=== PATIENT | female | born 1995 | race Caucasian/White ===

== ENCOUNTER 2025-01-28 09:04 | Inpatient (IN) | payer OTHER, SELFPAY ==
--- NOTE | ~2025-01-28 | CT_ITS ---
CLINICAL HISTORY: travel, chest pain tachycardia CTA angiography chest using bolus contrast injection. 3-D postprocessing Comparison: None Findings: Normal thoracic aorta and branch vessels Heart size is normal . RV/LV ratio normal Trachea and esophagus are normal. No signs of large airway obstruction Normal lungs Below the diaphragm , visualized portions of liver and spleen are unremarkable. No acute fractures Impression: Normal CTA angiography of the aorta. Negative for pulmonary embolus This document has been electronically signed by: David Estrada MD on 01/28/2025 13:29:03
--- NOTE | ~2025-01-28 | XR_ITS ---
CLINICAL HISTORY: pain Chest radiograph, 1 view Comparison: None Findings: The cardiomediastinal silhouette is not enlarged. Pulmonary vascularity is unremarkable. No focal consolidation or effusion. No pneumothorax. IMPRESSION: No acute cardiopulmonary findings. This document has been electronically signed by: Noam Fried DO on 01/28/2025 11:18:39
--- NOTE | 2025-01-28 09:05 | ECG_ITS ---
Test Reason : chest pain Blood Pressure : */* mmHG Vent. Rate : 109 BPM Atrial Rate : 109 BPM P-R Int : 116 ms QRS Dur : 94 ms QT Int : 310 ms P-R-T Axes : 70 89 59 degrees QTcB Int : 417 ms Sinus tachycardia Incomplete right bundle branch block Nonspecific ST abnormality Abnormal ECG No previous ECGs available Referred By: Generic ED Physician Electronically Signed By: HONORIO ZARAGOZA MD
[2025-01-28 09:10] VITALS: BP 122/69; PULSE 118; RESP 20; TEMP 36.6; O2SAT 100; BMI 24.4
--- NOTE | 2025-01-28 09:22 | ED.CHESTPAIN ---
HPI - Chest Pain General Chief Complaint: Chest Pain Stated Complaint: chest pain Time Seen by Provider: 01/28/25 09:18 Source: patient Mode of arrival: ambulatory Limitations: no limitations History of Present Illness ED Provider: JOAQUIN HPI narrative: 29 yo female with no PMH not on OCPs notes she has had runny nose and cough since last Wednesday while in [place]. She came home on . Last night around midnight she developed L sided chest burning and hurts to take a deep breath. She has not had a fever since last weekend. She notes no prior hx of blood clots, no rash. She has felt tired and weak. She checked her BP in the middle of the night it was 90s/50s. No recent calf pain. She could feel her heart racing overnight as well. No medications taken at home. MD complaint: chest pain Onset (ago): hour(s) (12) Timing of current episode: constant Prior episodes: Yes Onset: during rest Pain location: left chest Pain radiation: none Severity: moderate Quality: burning Relieving factors: nothing Exacerbating factors: inspiration Context: recent illness and recent travel Associated symptoms: palpitations Treatment prior to arrival: none Related Data Allergies Allergy/AdvReac Type Severity Reaction Status Date / Time No Known Allergies Allergy Verified 01/28/25 09:14 Review of Systems Review of Systems: Constitutional : No Weight loss, No Fever, No Chills ENT/Mouth : No sore throat, pos Rhinorrhea Eyes: No Eye Pain, No Swelling Cardiovascular : pos Chest Pain, no SOB, no Dyspnea on Exertion, No Orthopnea, No Edema, pos Palpitations Respiratory : No Cough, No Sputum Gastrointestinal : no Nausea, No Vomiting, No Diarrhea, No abdominal Pain, No Hematochezia, No Melena Genitourinary : No Dysuria, No Urinary Frequency Musculoskeletal : No joint pain, No Myalgias, No Joint Swelling Skin : No Skin Lesions, No rash Neuro : No Weakness, No Numbness, No Dizziness, No Headache All other systems reviewed and are negative [facility] Past Medical History Attestation statement: The following information was validated with the patient. Medical History No pertinent past medical history Social History Social History (Updated 01/28/25 @ 09:49 by Nhung Pennington DO) Patient Tobacco Use Status: Never used Tobacco Smoked in Last 30 Days: No Use of substances other than those prescribed or required for medical reasons: No Advance Directives: No Advance Directives Information Provided: No Do you have a plan to hurt others: No Plan Patient : No Physical Exam Vital Signs: Vital Signs: Last Vital Signs Temp 97.9 F 01/28/25 09:10 Pulse 107 H 01/28/25 11:46 Resp 12 01/28/25 11:46 BP 122/69 01/28/25 09:10 Pulse Ox 100 01/28/25 11:46 O2 Del Method Room Air 01/28/25 11:46 BMI result Body Mass Index 24.4 Appearance: Alert. Oriented X3. No acute distress. Eyes: Pupils equal, round and reactive to light. ENT: Pharynx normal. Neck: Normal inspection. Neck supple. CVS: Normal heart rate and rhythm. Pulses normal. Respiratory: No respiratory distress. Breath sounds normal. Abdomen: Soft and nontender. Skin: Skin warm and dry. Normal skin color. Normal skin turgor. Extremities: No lower extremity edema. No calf ttp Neuro: Oriented X 3. No motor deficit. No sensory deficit. CN2-12 intact Course Course Course Narrative: pain 3/10 resting comfortably after IV morphine given her symptoms and persistent tachycardia I am going to obtain CTA of chest Medications Administered Discontinued Medications Generic Name Dose Route Start Last Admin Trade Name Freq PRN Reason Stop Dose Admin Colchicine 0.6 mg 01/28/25 12:35 01/28/25 12:49 Colchicine 0.6 Mg Tablet PO 01/28/25 12:36 0.6 mg ONCE ONE Administration Lactated Ringer's 1,000 mls @ 999 mls/hr 01/28/25 09:36 01/28/25 11:00 Lr IV 01/28/25 10:36 Infused .Q1H1M ONE Infusion Iohexol 100 ml 01/28/25 11:35 01/28/25 11:35 Iohexol 350 Mg/Ml 100 Ml Infus..Btl IV 01/28/25 11:36 65 ml ONCE ONE Administration Ketorolac Tromethamine 15 mg 01/28/25 09:36 01/28/25 09:56 Ketorolac Tromethamine 15 Mg/Ml Vial IVPUSH 01/28/25 09:37 15 mg ONCE ONE Administration Morphine Sulfate 2 mg 01/28/25 10:13 01/28/25 10:22 Morphine Sulfate 2 Mg/Ml Cartridge IVPUSH 01/28/25 10:14 2 mg ONCE ONE Administration Protocol Ondansetron HCl 4 mg 01/28/25 10:13 01/28/25 10:21 Ondansetron Hcl 4 Mg/2 Ml Vial IVPUSH 01/28/25 10:14 4 mg ONCE ONE Administration Procedures Procedure Narrative Procedure Narrative: bedside ECHO apical parasternal subxiphoid no effusion noted no obvious GWMA Medical Decision Making Medical Decision Making MDM Narrative: 29 yo female with no sig PMH here with c/o recent URI x 1 week no recent fevers but then just traveled back from [place]. She is not on OCPs and has no known risk factors for VTE at baseline who developed L sided burning chest pain and pleuritic pain x 12 hours. At this time labs, viral panel, ddimer for low to mod probability, CXR, IVF and toradol for pain. She has no ACS risk factors, given viral illness could also be a myocarditis. Differential Diagnosis Differential Diagnoses: The differential diagnosis associated with the presentation includes URI, lyte abnormality, dehydration, VTE, atypical chest pain, myocarditis/pericarditis, SCAD Admission/Observation Consideration of admission/observation: Escalation of care including admission/observation considered admit for ECHO, trop trend, cardiology consult Consult Healthcare Provider Management of the patient was discussed with: Hospitalist (will admit) and Internet Programmer (cardiology ) Dr. Latif recommends NSAIDs, colchicine, ECHO Lab Data [facility] Lab Attestation statement: I reviewed the patient's lab results. 01/28/25 09:24 01/28/25 09:24 Labs: Lab Results 01/28/25 01/28/25 Range/Units 09:24 11:45 WBC 6.6 (4.8-10.8) X10*3/uL RBC 4.60 (4.20-5.50) X10*6/uL Hgb 13.1 (12.0-16.0) g/dl Hct 39.3 (37.0-47.0) % MCV 85.4 (80.0-98.0) fL MCH 28.5 (27.0-33.0) pg MCHC 33.3 (31.0-35.0) g/dl RDW 12.8 (11.0-16.0) % Plt Count 322 (160-400) X10*3/uL MPV 9.9 (9.4-12.3) fL Immature Gran % (Auto) 0.6 H (0.0-0.4) % Neut % (Auto) 71.3 (45-73) % Lymph % (Auto) 22.9 (20-40) % [place] % (Auto) 4.3 (2-11) % Eos % (Auto) 0.6 (0-4) % Baso % (Auto) 0.3 (0-2) % Lymph # (Auto) 1.5 (1.2-4.9) X10*3/uL [place] # (Auto) 0.3 (0.1-1.2) X10*3/uL Eos # (Auto) 0.0 (0.0-0.4) X10*3/uL Baso # (Auto) 0.0 (0.0-0.2) X10*3/uL Abs Immat Gran (auto) 0.04 H (0.00-0.03) X10*3/uL Absolute Neuts (auto) 4.7 (2.0-8.3) x10*3/uL Absolute Nucleated RBC 0.000 (0.0-0.012) X10*3/uL Nucleated RBC % (auto) 0.0 (0.0-0.2) /100WBC ESR 14 (0-20) MM/HR D-Dimer High Sensitivty 169 NG/ML Sodium 142 (135-145) mmol/L Potassium 3.8 (3.3-5.1) mmol/L Chloride 106 (96-108) mmol/L Carbon Dioxide 24 (22-29) mmol/L Anion Gap 16 (12-20) BUN 11 (9-16) mg/dL Creatinine 0.62 (0.5-1.4) mg/dL Estim Creat Clear Calc 108.0 Estimated GFR > 60 Random Glucose 97 (60-115) mg/dL Calcium 9.2 (8.4-10.2) mg/dL Magnesium 2.3 (1.6-2.6) mg/dL Total Bilirubin 0.5 (0.0-1.0) mg/dL Direct Bilirubin 0.2 (0.0-0.5) mg/dL AST 28 (5-31) U/L ALT 19 (0-31) U/L Alkaline Phosphatase 52 (39-117) U/L Total Creatine Kinase 185 H (26-140) U/L Troponin I High Sens 189.1 H* 190.8 H* (<3.5-17.0) ng/L C-Reactive Protein 0.59 H (< or = 0.50) mg/dL B-Natriuretic Peptide 18 (<100) pg/mL Total Protein 7.8 (6.5-8.0) g/dL Albumin 4.6 (3.5-5.0) g/dL Lipase 13 (8-78) U/L Beta HCG, Quant < 2 mIU/mL Influenza Type A (PCR) NEGATIVE (Negative) Influenza Type B (PCR) NEGATIVE (Negative) RSV RNA Qual (PCR) NEGATIVE (Negative) SARS-CoV-2 RNA (RT-PCR) NEGATIVE (Negative) Independent Interpretation I performed an independent interpretation of an: EKG, Plain X-Ray (no pneumonia) and CT Scan (no VTE, no dissection) Interpretation: Rate: 109 Rhythm: sinus tach [place]: normal Normal P waves. Normal JAHAIRA. incomplete RBBB ST T wave : no LASHAWN, nonspecific ST T wave changes inf lateral leads qTC: 417 prior studies: no prior The study has been interpreted contemporaneously by me. . Radiology Impression Discussion of test interpretation with radiology: I have reviewed the radiologist's reading. Independent Historian Clinical information obtained from an independent historian. History obtained from or confirmed by: Spouse Discharge Plan Discharge Clinical Impression: Chest pain, pleuritic, Elevated troponin, Acute viral syndrome Patient Disposition: Admitted As Inpatient Print Language: Tajik
[2025-01-28 09:33] LABS: MANUAL DIFF FLAG NO
[2025-01-28 09:48] LABS: Alanine Aminotransferase 19 U/L (0-31); Albumin Level 4.6 g/dL (3.5-5.0); Alkaline Phosphatase 52 U/L (39-117); Anion Gap 16 (12-20); Aspartate Amino Transferase 28 U/L (5-31); Bilirubin Direct 0.2 mg/dL (0.0-0.5); Bilirubin Total 0.5 mg/dL (0.0-1.0); Blood Urea Nitrogen 11 mg/dL (9-16); Calcium 9.2 mg/dL (8.4-10.2); Carbon Dioxide 24 mmol/L (22-29); Chloride 106 mmol/L (96-108); Estimated Glomerular Filt Rate > 60; Glucose Random 97 mg/dL (60-115); Lipase 13 U/L (8-78); Magnesium 2.3 mg/dL (1.6-2.6); Potassium 3.8 mmol/L (3.3-5.1); Sodium 142 mmol/L (135-145); Total Protein 7.8 g/dL (6.5-8.0)
[2025-01-28 09:54] LABS: B Type Natriuretic Peptide 18 pg/mL (<100)
[2025-01-28 09:55] LABS: HCG Quantitative < 2 mIU/mL
[2025-01-28] MEDS: Ketorolac Tromethamine 15 MG/ML VIAL IVPUSH (09:56)
[2025-01-28] MEDS: Lactated Ringers 1,000 ML 999 ML IV (09:56)
[2025-01-28 09:58] LABS: Troponin-I High Sensitivity 189.1 ng/L (<3.5-17.0)
--- NOTE | 2025-01-28 10:05 | PC.NURSE ---
patient a&ox3, iv inserted, labs previously drawn, ekg previously drawn, grain and yeast plants supervisor applied, pt medicated per order, provider at bedside, call lay within reach, plan of care ongoing
[2025-01-28 10:10] LABS: Influenza A PCR NEGATIVE (Negative); Influenza B PCR NEGATIVE (Negative); Resp Syncy Virus RNA Qual PCR NEGATIVE (Negative); SARS COV2 PCR INHOUSE NEGATIVE (Negative)
[2025-01-28 10:11] LABS: Basophils Percent Auto 0.3 % (0-2); Eosinophils Percent Auto 0.6 % (0-4); Hematocrit 39.3 % (37.0-47.0); Hemoglobin 13.1 g/dl (12.0-16.0); Imm Gran Abs Auto 0.04 X10*3/uL (0.00-0.03); Imm Gran Pct Auto 0.6 % (0.0-0.4); Lymphocytes Absolute Auto 1.5 X10*3/uL (1.2-4.9); Lymphocytes Percent Auto 22.9 % (20-40); Mean Corpuscular HGB Conc 33.3 g/dl (31.0-35.0); Mean Corpuscular Hemoglobin 28.5 pg (27.0-33.0); Mean Corpuscular Volume 85.4 fL (80.0-98.0); Mean Platelet Volume 9.9 fL (9.4-12.3); Monocytes Absolute Auto 0.3 X10*3/uL (0.1-1.2); Monocytes Percent Auto 4.3 % (2-11); Neutrophils Absolute Auto 4.7 x10*3/uL (2.0-8.3); Neutrophils Percent Auto 71.3 % (45-73); Platelet Count 322 X10*3/uL (160-400); Red Cell Distribution Width 12.8 % (11.0-16.0); White Blood Count 6.6 X10*3/uL (4.8-10.8)
[2025-01-28 10:19] LABS: D Dimer High Sensitivity 169 NG/ML
[2025-01-28] MEDS: ondansetron HCL 4 MG/2 ML VIAL IVPUSH (10:21)
[2025-01-28] MEDS: Morphine Sulfate 2 MG/ML CARTRIDGE IVPUSH (10:22)
[2025-01-28 10:25] LABS: C Reactive Protein 0.59 mg/dL (< or = 0.50)
--- NOTE | 2025-01-28 10:30 | PC.NURSE ---
pt medicated for pain per orders
[2025-01-28 10:55] LABS: Erythrocyte Sedimentation Rate 14 MM/HR (0-20)
[2025-01-28] MEDS: iohexoL 350 MG/ML 100 ML INFUS..BTL IV (11:35)
[2025-01-28 11:46] VITALS: PULSE 107; RESP 12; O2SAT 100
[2025-01-28 12:22] LABS: Troponin-I High Sensitivity 190.8 ng/L (<3.5-17.0)
[2025-01-28] MEDS: Colchicine 0.6 MG TABLET PO ×2 (12:49→21:02)
--- NOTE | 2025-01-28 13:39 | P.HPHOSP_ITS ---
History of Present Illness Date of Service: 01/28/25 Attending physician on admission: Brittany Gatica Chief Complaint: Chest pain Pt is a 29-year-old female with without any known significant PMH not on home prescription medications who presents to the ED with?chest pain since midnight last night. Pt reports she was awoken from sleep with primarily left-sided, non-radiating chest pain she initially thought was heartburn has her chest felt ?on fire?. Pt was able to fall back asleep, but pain persisted in the morning when she awoke. Also experienced some SOB, difficulty breathing, and palpitations. Pt reports last week on Wednesday came down with a ?tough cold? while visiting [place]. Pt experienced fever, chills, rhinorrhea, cough, and laryngitis. Currently no fever or chills, nausea, vomiting, or abdominal pain. In the ED pt was tachycardic up to 118, vitals otherwise stable and WNL. Labs were significant for initial troponin 189.1 with repeat flat at 190.8, CPK 185, CRP mildly elevated at 0.59. No leukocytosis. Stable H&H. ESR WNL at 14. No significant electrolyte abnormalities. Renal function baseline. Hepatic function baseline. BNP WNL. Tested negative for flu, COVID, RSV. CXR showed no acute cardiopulmonary findings. CTA of chest negative for PE. EKG demonstrated sinus tachycardia of [address] abnormality. Pt was treated with IVF, ketorolac, ondansetron, morphine, and colchicine. Pt will be admitted to the hospital for treatment and further evaluation of elevated troponins and chest pain concerning for myocarditis. Review of Systems 2 Review of Systems: Negative except for that which is stated in the HPI. [facility] Medical History No pertinent past medical history Social History Patient Tobacco Use Status: Never used Tobacco Smoked in Last 30 Days: No Use of substances other than those prescribed or required for medical reasons: No Advance Directives: No Advance Directives Information Provided: No Do you have a plan to hurt others: No Plan Patient : No Meds Allergies Allergy/AdvReac Type Severity Reaction Status Date / Time No Known Allergies Allergy Verified 01/28/25 09:14 Home Medications ?Medication ?Instructions ?Recorded ?Confirmed ?Last Taken ?Type magnesium glycinate 100 mg (as 200 mg PO DAILY 01/28/25 01/28/25 01/27/25 History glycinate) tablet omega-3 fatty acids-fish oil 684 1 cap PO DAILY 01/28/25 01/28/25 01/27/25 History mg-1,200 mg capsule,delayed release Physical Exam 2 Vital Signs and Narrative: Vital Signs: Last Vital Signs Temp 97.9 F 01/28/25 09:10 Pulse 107 H 01/28/25 11:46 Resp 12 01/28/25 11:46 BP 122/69 01/28/25 09:10 Pulse Ox 100 01/28/25 11:46 O2 Del Method Room Air 01/28/25 11:46 BMI result Body Mass Index 24.4 General: AOx3, no acute distress Resp: CTA bilaterally CVS: S1, S2, RRR GI: +BS, NT, no distention Skin: Warm, dry Neuro: Cranial nerves II-XII grossly intact bilaterally. Motor grossly intact bilaterally Extremities: No edema Psych: Appropriate affect Results Labs 01/28/25 09:24 01/28/25 09:24 Labs: Laboratory Results - last 24 hr 01/28/25 09:24 MCV 85.4 MCH 28.5 MCHC 33.3 RDW 12.8 Plt Count 322 MPV 9.9 Immature Gran % (Auto) 0.6 H Neut % (Auto) 71.3 Lymph % (Auto) 22.9 [place] % (Auto) 4.3 Eos % (Auto) 0.6 Baso % (Auto) 0.3 Lymph # (Auto) 1.5 [place] # (Auto) 0.3 Eos # (Auto) 0.0 Baso # (Auto) 0.0 Abs Immat Gran (auto) 0.04 H Absolute Neuts (auto) 4.7 Absolute Nucleated RBC 0.000 Nucleated RBC % (auto) 0.0 ESR 14 D-Dimer High Sensitivty 169 Anion Gap 16 Estim Creat Clear Calc 108.0 Estimated GFR > 60 Random Glucose 97 Calcium 9.2 Magnesium 2.3 Total Bilirubin 0.5 Direct Bilirubin 0.2 AST 28 ALT 19 Alkaline Phosphatase 52 Total Creatine Kinase 185 H C-Reactive Protein 0.59 H B-Natriuretic Peptide 18 Total Protein 7.8 Albumin 4.6 Lipase 13 Beta HCG, Quant < 2 Influenza Type A (PCR) NEGATIVE Influenza Type B (PCR) NEGATIVE RSV RNA Qual (PCR) NEGATIVE SARS-CoV-2 RNA (RT-PCR) NEGATIVE Assessment and Plan (1) Elevated troponin: Status: Acute (2) Chest pain: Status: Acute Plan Pt is a 29-year-old female with without any known significant PMH not on home prescription medications who presents to the ED with?chest pain since midnight last night. Pt will be admitted to the hospital for treatment and further evaluation of elevated troponins and chest pain concerning for myocarditis. Elevated troponins Pt with left-sided chest pain since last night Initial troponin 189.1 with repeat 190.8, EKG without significant ST elevations Will treat with indomethacin 50 mg b.i.d., colchicine 0.6 mg b.i.d., and GI prophylaxis with omeprazole 20 mg daily Echocardiogram Trend troponin, CRP, ESR, CPK Cardiology consult Monitor on telemetry Full Code Attending:?Dr. Gatica DVT Prophylaxis: Lovenox Pt will require a hospitalization of at least two nights for treatment of?chest pain and elevated troponins concerning for myocarditis. Pt will require hospital level care for trending of labs including troponins and inflammatory markers, close cardiac monitoring, and additional workup including echocardiogram and cardiology consultation. Quality Stroke Does the patient have a stroke diagnosis?: No VTE Prior VTE?: No VTE Risk Level:: Medical - moderate - high VTE Device Contraindication: Treatment Not Indicated VTE Drug Contraindication: N/A - Med Ordered
[2025-01-28 14:04] VITALS: BP 100/53; PULSE 111; RESP 12; TEMP 36.8; O2SAT 98
--- NOTE | 2025-01-28 14:04 | PC.NURSE ---
patient a&ox3, vss, cardiac moitor intact-sinus tach, pt states she has 3/10 chest discomfort, at bedside, hospitalist speaking with patient and family, call lay within reach, plan of care ongoing
--- NOTE | 2025-01-28 15:18 | PHA.MEDREC ---
Pharmacy Consult ? Medication Reconciliation Pharmacy has completed the medication reconciliation. Spoke to pt to confirm meds. Per pt, cannot tolerate magnesium Oxide as it causes diarrhea.
[2025-01-28] MEDS: Enoxaparin Sodium 40 MG/0.4 ML SYRINGE SUBCUT (15:40)
[2025-01-28] MEDS: 0.9 % Sodium Chloride Flush 3 ML SYRINGE IVFLUSH (15:42)
[2025-01-28 17:49] VITALS: BP 106/54; PULSE 110; RESP 20; O2SAT 98
--- NOTE | 2025-01-28 18:13 | PC.NURSE ---
patient currently sleeping, master lay out specialist intact NSR 80s on monitor, call lay within reach, plan of care ongoing
[2025-01-28 19:52] VITALS: BP 116/60; PULSE 85; RESP 18; O2SAT 99
[2025-01-28] MEDS: Acetaminophen 325 MG TABLET 650 MG PO (21:01)
[2025-01-28] MEDS: Indomethacin 25 MG CAPSULE 50 MG PO (21:02)
[2025-01-29 01:22] VITALS: BP 108/67; PULSE 105; RESP 16; TEMP 36.5; O2SAT 98
[2025-01-29] MEDS: Omeprazole 20 MG CAPSULE.DR PO (06:28)
[2025-01-29 06:31] VITALS: BP 102/67; PULSE 91; RESP 16; TEMP 36.6; O2SAT 98
--- NOTE | 2025-01-29 07:00 | CA_ITS ---
Transthoracic Echocardiogram Patient (Last, First, Middle): Carrol Dunbar, Gender: Female Date of : 1995 Age: 29 Procedure Date: 01/29/2025 Procedure Type: Transthoracic Echocardiogram Location: ER Height: 154.94 cm Weight: 58.06 kg BSA: 1.56 m2 Heart Rate: 83 bpm BP: 102 / 67 mmHg Operating Theatre Technician: SB Referring MD: Anne COLMENARES Symptoms: Elevated trops, ?myocarditis Study Quality: Adequate ECG Rhythm: Sinus Conclusions: - The left ventricular systolic function is normal. The calculated ejection fraction is 59% by biplane method. - Possible basal inferior/ inferolateral wall hypokinesis. - No obvious valvular pathology seen on this study. - There is a trivial pericardial effusion. Findings Left Ventricle Normal left ventricular cavity size. There is normal left ventricular wall thickness. The left ventricular systolic function is normal. The calculated ejection fraction is 59% by biplane method. Diastolic function is normal for age. Possible basal inferior/ inferolateral wall hypokinesis. Right Ventricle Normal right ventricular cavity size and systolic function. Atria Both atria are normal in size. Aortic Valve There is a normal trileaflet aortic valve. There is no aortic valve stenosis. There is no aortic valve regurgitation. Mitral Valve The mitral valve appears normal. There is no mitral valve regurgitation. There is no mitral valve stenosis. Pulmonic Valve The pulmonic valve is likely normal. Tricuspid Valve Normal tricuspid valve structure. There is no tricuspid valve regurgitation. Tricuspid regurgitation envelope is inadequate for calculation of right ventricular systolic pressure. Great Vessels The asc aorta is normal in size. Venous The inferior vena cava is normal in size and collapses greater than 50% with inspiration. Pericardium/Pleural There is a trivial pericardial effusion. Prior Study Comparison No prior study available for comparison. Recommendations, Care & Conclusions No obvious valvular pathology seen on this study. Measurements 2D Linear Measurements IVSd: 0.59 0.6-0.9/0.6-1.0 cm LVIDd: 4.65 3.9-5.3/4.2-5.9 cm LVIDd Index: 2.98 2.4-3.2/2.2-3.1 cm/m2 LVIDs: 2.85 2.0-3.6 cm LVPWd: 0.62 0.7-1.1 cm LA Diam: 2.70 2.7-3.8/3.0-4.0 cm LAIDs Index: 1.73 1.5-2.3 cm/m2 LV Mass: 104.82 67-162/88-224 g LV Mass Index: 67.19 43-95/49-115 g/m2 LVOT Diam: 2.10 3.0+(-)1.3 cm 2D Systolic Function EF 4C: 58.90 >55% EF 2C: 60.60 >55% EF BiP: 59.20 >55% Mitral Valve MV Pk E: 0.83 MV PK A: 0.27 MV Decel Time: 190.00 E/A: 3.00 E'Lateral: 17.60 E'Medial: 13.90 E/E' Med: 6.00 E/E' Lat: 4.70 PHT: 56.00 MVA PHT: 3.93 Decel [place]: 4.39 Aortic Valve AoV Pk Monster: 1.19 AoV Pk Grad: 6.00 [place]: 2.97 LVOT LVOT Pk Monster: 1.04 LVOT Mn Monster: 0.71 LVOT VTI: 0.19 LVOT Pk Grad: 4.00 LVOT Mn Grad: 2.00 LVOT Diam: 2.10 LVOT Area: 3.46 Diastolic Function MV Pk E: 0.83 MV Pk A: 0.27 E/A: 3.00 E'Medial: 13.90 E/E' Med: 6.00 E' Laterial: 17.60 E/E' Lat: 4.70 Right Ventricle TVS' Monster: 12.30 Tricuspid Valve RA Press: 3.00 Great Vessels Aorta Ao Asc: 2.40 2.1-3.4 cm Pulmonary Veins Pulm Vein S/D 1.50 Pulmonary Valve PV Pk Monster: 1.11 Peak PV Grad: 5.00 Updated in Other Vendor System with Status of Final Domenico Josue MD electronically signed on 01/29/2025 11:19:03 AM with status of Final
[2025-01-29 07:52] LABS: Anion Gap 11 (12-20); Blood Urea Nitrogen 10 mg/dL (9-16); C Reactive Protein 0.33 mg/dL (< or = 0.50); Calcium 8.5 mg/dL (8.4-10.2); Carbon Dioxide 23 mmol/L (22-29); Chloride 110 mmol/L (96-108); Creatinine Clr Calc Pharmacy 121.8; Estimated Glomerular Filt Rate > 60; Glucose Random 79 mg/dL (60-115); Potassium 3.7 mmol/L (3.3-5.1); Sodium 140 mmol/L (135-145)
[2025-01-29 07:59] LABS: Troponin-I High Sensitivity 36.5 ng/L (<3.5-17.0)
[2025-01-29 08:31] LABS: Erythrocyte Sedimentation Rate 12 MM/HR (0-20)
--- NOTE | 2025-01-29 09:02 | P.CONCA_ITS ---
History of Present Illness History of Present Illness Date of Service: 01/29/25 Chief complaint: Myocarditis Narrative: This is a cardiology consultation regarding chest pain. Patient herself does not have any major health issues and she is quite healthy. 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 Then she came to her home town, [place] few days back. While in [place], it seems that she was having some upper respiratory symptoms. However, that later developed into left-sided chest pain which felt like heartburn and as it did not go away, she came to the ER. Troponins are elevated and she has been diagnosed as myocarditis. Today, she states she actually feels much better on the chest pain is gone. No previous cardiac issues and no other concerns overall. Review of Systems 2 Review of Systems: Yes all other systems are reviewed and are negative Constitutional: Constitutional: Reports as per HPI and Reports no additional constitutional complaints Eyes: Eyes: Reports as per HPI and Denies no additional eye complaints ENT: Denies system reviewed and no additional complaints, except as documented and Reports as per HPI Cardiovascular: Cardiovascular: Reports as per HPI, Reports no additional cardiovascular complaints, Denies acrocyanosis, Denies cool extremities, Reports chest pain, Denies leg edema, Denies lightheadedness, Denies palpitations and Denies dyspnea Respiratory: Respiratory: Reports as per HPI, Denies no additional respiratory complaints and Denies dyspnea Gastrointestinal: Gastrointestinal: Reports as per HPI and Denies no additional gastrointestinal complaints Genitourinary: Genitourinary: Reports as per HPI Musculoskeletal: Musculoskeletal: Reports no additional musculoskeletal complaints and Reports as per HPI Integumentary/Breasts: Skin/Breast: Reports system reviewed and no additional complaints, except as docu Neurologic: Reports system reviewed and no additional complaints, except as documented and Reports as per HPI Psychiatric: Psychiatric: Reports no additional psychiatric complaints and Reports as per HPI Endocrine: Endocrine: Reports no additional endocrine complaints, Reports as per HPI and Denies palpitations Hematologic/Lymphatic: Hematologic/Lymphatic: Reports no additional hematologic/lymphatic complaints and Reports as per HPI Allergic/Immunologic: Allergic/Immunologic: Reports no additional allergic/immunologic complaints and Reports as per HPI [facility] Past Medical History Medical History No pertinent past medical history Family History Family History Mother No problems noted. Father No problems noted. Social History Social History Patient Tobacco Use Status: Never used Tobacco Smoked in Last 30 Days: No Use of substances other than those prescribed or required for medical reasons: No Advance Directives: No Advance Directives Information Provided: No Do you have a plan to hurt others: No Plan Patient : No Meds Allergies Allergy/AdvReac Type Severity Reaction Status Date / Time No Known Allergies Allergy Verified 01/28/25 09:14 Active Medications: Current Medications Acetaminophen (Acetaminophen 325 Mg Tablet) 650 mg PO Q6H PRN PRN Reason: Pain, Mild 1-3,fever,headache Last Admin: 01/28/25 21:01 Dose: 650 mg Calcium Carbonate (Calcium Carbonate 750 Mg Tab.Chew) 750 mg PO Q4H PRN PRN Reason: Heartburn Colchicine (Colchicine 0.6 Mg Tablet) 0.6 mg PO BID [facility] Last Admin: 01/28/25 21:02 Dose: 0.6 mg Enoxaparin Sodium (Enoxaparin Sodium 40 Mg/0.4 Ml Syringe) 40 mg SUBCUT Q24H [facility] Last Admin: 01/28/25 15:40 Dose: 40 mg Indomethacin (Indomethacin 25 Mg Capsule) 50 mg PO BID [facility] Last Admin: 01/28/25 21:02 Dose: 50 mg Magnesium Hydroxide (Milk Of Magnesia 30 Ml Oral.Susp) 30 ml PO DAILY PRN PRN Reason: Constipation Melatonin (Melatonin 3 Mg Tablet) 6 mg PO BEDTIME PRN PRN Reason: Insomnia Omeprazole (Omeprazole 20 Mg Capsule.Dr) 20 mg PO DAILY@0630 [facility] Last Admin: 01/29/25 06:28 Dose: 20 mg Ondansetron HCl (Ondansetron Hcl 4 Mg/2 Ml Vial) 4 mg IVPUSH Q8H PRN PRN Reason: Nausea and Vomiting Sodium Chloride (0.9 % Sodium Chloride Flush 3 Ml Syringe) 3 ml IVFLUSH QSHIFT [facility] Last Admin: 01/29/25 04:37 Dose: Not Given Home Medications ?Medication ?Instructions ?Recorded ?Confirmed ?Last Taken ?Type magnesium glycinate 100 mg (as 200 mg PO DAILY 01/28/25 01/28/25 01/27/25 History glycinate) tablet omega-3 fatty acids-fish oil 684 1 cap PO DAILY 01/28/25 01/28/25 01/27/25 History mg-1,200 mg capsule,delayed release Physical Exam 2 Vital Signs: Vital Signs: Last Vital Signs Temp 97.8 F 01/29/25 06:31 Pulse 91 01/29/25 06:31 Resp 16 01/29/25 06:31 BP 102/67 01/29/25 06:31 Pulse Ox 98 01/29/25 06:31 O2 Del Method Room Air 01/29/25 06:31 BMI result Body Mass Index 24.4 Const: General: comfortable and no acute distress O rientation/consciousness: patient oriented x3 HEENT: Other: Unremarkable Head: Yes normal to inspection Neck: Neck: Yes normal visual inspection Chest: Chest palpation & inspection: normal inspection of the chest Resp: Auscultation: clear to auscultation bilaterally Cardio: Palpation: normal PMI Heart sounds: S1 normal heart sound present, S2 normal heart sound present, no gallops, no murmurs and no rubs GI: Palpation (GI): Soft to palpation Back/Spine/Pelvis: Other: unremarkable Skin: General skin exam: no rashes or lesions noted Neuro: General: patient oriented x3 Extrem: General: Yes normal to inspection Psych: Mental Status: mental status grossly normal Objective Labs and Meds 01/28/25 09:24 01/29/25 07:25 Lab results: Laboratory Results - last 24 hr 01/28/25 01/28/25 01/29/25 09:24 11:45 07:25 WBC 6.6 RBC 4.60 Hgb 13.1 Hct 39.3 MCV 85.4 MCH 28.5 MCHC 33.3 RDW 12.8 Plt Count 322 MPV 9.9 Immature Gran % (Auto) 0.6 H Neut % (Auto) 71.3 Lymph % (Auto) 22.9 [place] % (Auto) 4.3 Eos % (Auto) 0.6 Baso % (Auto) 0.3 Lymph # (Auto) 1.5 [place] # (Auto) 0.3 Eos # (Auto) 0.0 Baso # (Auto) 0.0 Abs Immat Gran (auto) 0.04 H Absolute Neuts (auto) 4.7 Absolute Nucleated RBC 0.000 Nucleated RBC % (auto) 0.0 ESR 14 12 D-Dimer High Sensitivty 169 Sodium 142 140 Potassium 3.8 3.7 Chloride 106 110 H Carbon Dioxide 24 23 Anion Gap 16 11 L BUN 11 10 Creatinine 0.62 0.55 Estim Creat Clear Calc 108.0 121.8 Estimated GFR > 60 > 60 Random Glucose 97 79 Calcium 9.2 8.5 D Magnesium 2.3 Total Bilirubin 0.5 Direct Bilirubin 0.2 AST 28 ALT 19 Alkaline Phosphatase 52 Total Creatine Kinase 185 H 216 H Troponin I High Sens 189.1 H* 190.8 H* 36.5 H D C-Reactive Protein 0.59 H 0.33 B-Natriuretic Peptide 18 Total Protein 7.8 Albumin 4.6 Lipase 13 Beta HCG, Quant < 2 Influenza Type A (PCR) NEGATIVE Influenza Type B (PCR) NEGATIVE RSV RNA Qual (PCR) NEGATIVE SARS-CoV-2 RNA (RT-PCR) NEGATIVE ECG Interpretation: EKG with sinus tachycardia at 109/Min; incomplete right bundle-branch block; nonspecific ST-T changes. Normal CT and corrected QT. Assessment and Plan (1) Elevated troponin: Status: Acute (2) Acute viral syndrome: Status: Acute (3) Myocarditis: Status: Acute Plan History of recent viral syndrome followed by chest pain. EKG without any clear-cut ischemic findings. Elevated troponins but improving. The trend is 189, 191, 36. Hence has come down significantly. CTA chest shows normal angiography of the aorta. No pulmonary embolus. Patient is also symptom-free at this time. So far, she has received Toradol, colchicine, morphine. Currently, working diagnosis acute myocarditis related to recent respiratory infection. We will get an echocardiogram for further evaluation. If any overt wall motion abnormalities or other concerns, we will re-evaluate. Otherwise, keep on NSAIDs and colchicine. Procedures Date of Service Date of Service: 01/29/25
--- NOTE | 2025-01-29 09:15 | MHC.CM.PN ---
CM met with Patient at bedside, in the ED. Patient lives in a house with her , [id number], and 5 year old Daughter and she is functionally independent. Home/self care is Patient's goal (no PCP/PCP brochure to be provided); CM has initiated and will follow for dc planning. will transport to home at dc.
[2025-01-29] MEDS: Indomethacin 25 MG CAPSULE 50 MG PO ×2 (10:20→22:35)
[2025-01-29] MEDS: Colchicine 0.6 MG TABLET PO ×2 (10:20→22:36)
[2025-01-29] MEDS: 0.9 % Sodium Chloride Flush 3 ML SYRINGE IVFLUSH ×2 (10:20→21:49)
--- NOTE | 2025-01-29 12:12 | HO.PM.IMPN ---
Subjective Subjective Date of Service: 01/29/25 Interval History: seen and evaluated Feels better overnight denies anymore pain HR better controlled no other overnight events Review of Systems Review of Systems: Yes all other systems are reviewed and are negative Physical Exam Vital Signs: Vital Signs: Last Vital Signs Temp 97.8 F 01/29/25 06:31 Pulse 91 01/29/25 06:31 Resp 16 01/29/25 06:31 BP 102/67 01/29/25 06:31 Pulse Ox 98 01/29/25 06:31 O2 Del Method Room Air 01/29/25 06:31 BMI result Body Mass Index 24.4 Const: Other: Constitutional : Awake, interactive, not in distress Neck : Normal inspection, Supple Cardiovascular : RRR, no JVP, no lower extremity edema Respiratory : good bilateral air entry, no crackles, wheezes or rhonchi Gastrointestinal: soft, lax, Normal bowel sounds, Non tender Skin : Warm, Dry Neurological : Alert & oriented x3, No focal deficit , CN 2-12 within normal Objective Data Active Medications Acetaminophen (Acetaminophen 325 Mg Tablet) 650 mg PO Q6H PRN PRN Reason: Pain, Mild 1-3,fever,headache Last Admin: 01/28/25 21:01 Dose: 650 mg Documented By: RUI Calcium Carbonate (Calcium Carbonate 750 Mg Tab.Chew) 750 mg PO Q4H PRN PRN Reason: Heartburn Colchicine (Colchicine 0.6 Mg Tablet) 0.6 mg PO BID [facility] Last Admin: 01/29/25 10:20 Dose: 0.6 mg Documented By: CHRISTIE Enoxaparin Sodium (Enoxaparin Sodium 40 Mg/0.4 Ml Syringe) 40 mg SUBCUT Q24H [facility] Last Admin: 01/28/25 15:40 Dose: 40 mg Documented By: NIDIA Indomethacin (Indomethacin 25 Mg Capsule) 50 mg PO BID [facility] Last Admin: 01/29/25 10:20 Dose: 50 mg Documented By: CHRISTIE Magnesium Hydroxide (Milk Of Magnesia 30 Ml Oral.Susp) 30 ml PO DAILY PRN PRN Reason: Constipation Melatonin (Melatonin 3 Mg Tablet) 6 mg PO BEDTIME PRN PRN Reason: Insomnia Omeprazole (Omeprazole 20 Mg Capsule.) 20 mg PO DAILY@0630 [facility] Last Admin: 01/29/25 06:28 Dose: 20 mg Documented By: RUI Ondansetron HCl (Ondansetron Hcl 4 Mg/2 Ml Vial) 4 mg IVPUSH Q8H PRN PRN Reason: Nausea and Vomiting Sodium Chloride (0.9 % Sodium Chloride Flush 3 Ml Syringe) 3 ml IVFLUSH QSHIFT [facility] Last Admin: 01/29/25 10:20 Dose: 3 ml Documented By: CHRISTIE Labs 01/28/25 09:24 01/29/25 07:25 Labs: Laboratory Results - last 24 hr 01/29/25 07:25 ESR 12 Anion Gap 11 L Estim Creat Clear Calc 121.8 Estimated GFR > 60 Random Glucose 79 Calcium 8.5 D Total Creatine Kinase 216 H C-Reactive Protein 0.33 Assessment and Plan (1) Chest pain: Status: Acute (2) Acute viral syndrome: Status: Acute (3) Elevated troponin: Status: Acute Plan Pt is a 29-year-old female with without any known significant PMH not on home prescription medications who presents to the ED with?chest pain since midnight last night. Pt will be admitted to the hospital for treatment and further evaluation of elevated troponins and chest pain concerning for myocarditis. Chest pain with Elevated troponins Initial troponin 189.1 with repeat 190.8, EKG without significant ST elevations concern of acute myocarditis post viral illness Continue indomethacin 50 mg b.i.d., colchicine 0.6 mg b.i.d., GI prophylaxis with omeprazole 20 mg daily Echocardiogram pending Trended down troponin, CRP, ESR Cardiology input appreciated Monitor on telemetry Full Code DVT Prophylaxis: Lovenox Pt will require a hospitalizationovernight for treatment of?chest pain and elevated troponins concerning for myocarditis. Pt will require hospital level care for trending of labs including troponins and inflammatory markers, close cardiac monitoring, and echocardiogram Quality Stroke Does the patient have a stroke diagnosis?: No VTE Prior VTE?: No VTE Risk Level:: Medical - moderate - high VTE Device Contraindication: Treatment Not Indicated VTE Drug Contraindication: N/A - Med Ordered
[2025-01-29 13:07] VITALS: BP 92/48; PULSE 85; RESP 16; TEMP 36.6; O2SAT 85
[2025-01-29] MEDS: Lactated Ringers 1,000 ML 999 ML IV (17:05)
[2025-01-29] MEDS: Enoxaparin Sodium 40 MG/0.4 ML SYRINGE SUBCUT (17:06)
[2025-01-29 17:10] VITALS: BP 108/65; PULSE 78; RESP 18; O2SAT 98
[2025-01-29 17:26] VITALS: BP 121/83; PULSE 65; RESP 18; TEMP 36.4; O2SAT 100
[2025-01-29 19:39] VITALS: BP 109/72; PULSE 78; RESP 18; TEMP 36.7; O2SAT 99
[2025-01-29] MEDS: ondansetron HCL 4 MG/2 ML VIAL IVPUSH (21:46)
[2025-01-30] VITALS (7 sets, daily range): BP systolic 97–129; BP diastolic 56–74; PULSE 78–98; RESP 14–18; TEMP 36.5–37.1; O2SAT 97–99
[2025-01-30] MEDS: Omeprazole 20 MG CAPSULE.DR PO (06:43)
[2025-01-30 06:59] LABS: Anion Gap 15 (12-20); Blood Urea Nitrogen 9 mg/dL (9-16); Calcium 9.2 mg/dL (8.4-10.2); Carbon Dioxide 22 mmol/L (22-29); Chloride 109 mmol/L (96-108); Creatinine Clr Calc Pharmacy 111.7; Estimated Glomerular Filt Rate > 60; Glucose Random 83 mg/dL (60-115); Potassium 3.8 mmol/L (3.3-5.1); Sodium 142 mmol/L (135-145)
[2025-01-30 07:06] LABS: B Type Natriuretic Peptide 33 pg/mL (<100)
--- NOTE | 2025-01-30 08:31 | ECG_ITS ---
Test Reason : cp, elev troponins Blood Pressure : */* mmHG Vent. Rate : 93 BPM Atrial Rate : 93 BPM P-R Int : 122 ms QRS Dur : 82 ms QT Int : 362 ms P-R-T Axes : 58 80 88 degrees QTcB Int : 450 ms Normal sinus rhythm T inversion in aVL Borderline ECG When compared with ECG of 28-Jan-2025 09:07, Nonspecific T wave abnormality now evident in Lateral leads Referred By: Sravani Irvin Electronically Signed By: SRAVANI IRVIN
[2025-01-30] MEDS: Indomethacin 25 MG CAPSULE 50 MG PO ×2 (09:15→20:28)
[2025-01-30] MEDS: Colchicine 0.6 MG TABLET PO (09:16)
--- NOTE | 2025-01-30 09:38 | PM.PNCARD ---
Subjective Subjective Date of Service: 01/30/25 Interval history: Had an episode of chest pain last night but then resolved completely. Currently main concern is that she is having lot of diarrhea. I am not clear if it is viral gastroenteritis or colchicine side effect. Review of Systems Review of Systems Yes all other systems are reviewed and are negative Constitutional: Reports as per HPI and Reports no additional constitutional complaints Eyes: Reports as per HPI and Denies no additional eye complaints Denies system reviewed and no additional complaints, except as documented and Reports as per HPI Cardiovascular: Reports as per HPI, Reports no additional cardiovascular complaints, Denies acrocyanosis, Denies cool extremities, Denies chest pain, Denies leg edema, Denies lightheadedness, Denies palpitations and Denies dyspnea Respiratory: Reports as per HPI, Denies no additional respiratory complaints and Denies dyspnea Gastrointestinal: Reports as per HPI, Denies no additional gastrointestinal complaints and Reports diarrhea Genitourinary: Reports as per HPI Musculoskeletal: Reports no additional musculoskeletal complaints and Reports as per HPI Skin/Breast: Reports system reviewed and no additional complaints, except as docu Reports system reviewed and no additional complaints, except as documented and Reports as per HPI Psychiatric: Reports no additional psychiatric complaints and Reports as per HPI Endocrine: Reports no additional endocrine complaints, Reports as per HPI and Denies palpitations Hematologic/Lymphatic: Reports no additional hematologic/lymphatic complaints and Reports as per HPI Allergic/Immunologic: Reports no additional allergic/immunologic complaints and Reports as per HPI Physical Exam Vital Signs: Last Vital Signs Temp 98 F 01/30/25 07:47 Pulse 80 01/30/25 07:47 Resp 14 01/30/25 07:47 BP 97/59 L 01/30/25 07:47 Pulse Ox 99 01/30/25 07:47 O2 Del Method Room Air 01/30/25 07:47 BMI result Body Mass Index 24.4 Const General: comfortable and no acute distress Orientation/consciousness: patient oriented x3 HEENT Other: Unremarkable Head: Yes normal to inspection Neck Neck: Yes normal visual inspection Chest Chest palpation & inspection: normal inspection of the chest Resp Auscultation: clear to auscultation bilaterally Cardio Palpation: normal PMI Heart sounds: S1 normal heart sound present, S2 normal heart sound present, no gallops, no murmurs and no rubs GI Palpation (GI): Soft to palpation Back/Spine/Pelvis Other: unremarkable Skin General skin exam: no rashes or lesions noted Neuro General: patient oriented x3 Extrem General: Yes normal to inspection Psych Mental Status: mental status grossly normal Objective Labs and Meds 01/28/25 09:24 01/30/25 06:33 Lab results: Laboratory Results - last 24 hr 01/30/25 06:33 Sodium 142 Potassium 3.8 Chloride 109 H Carbon Dioxide 22 Anion Gap 15 BUN 9 Creatinine 0.60 Estim Creat Clear Calc 111.7 Estimated GFR > 60 Random Glucose 83 Calcium 9.2 D B-Natriuretic Peptide 33 Progress Note: A&P Assessment and plan (1) Elevated troponin: Status: Acute (2) Myocarditis: Status: Acute (3) Acute viral syndrome: Status: Acute Plan In EKG today, sinus rhythm; T inversion in aVL with nonspecific change in lead 1; otherwise unremarkable. In the echocardiogram, LVEF 59%. Possible basal inferior/inferolateral hypokinesis. Trivial pericardial effusion. Overall, working diagnosis is acute myopericarditis. Recent upper respiratory viral symptoms. Other diagnosis like coronary spasm, dissection extra are much less likely. Pain seems much better on NSAIDs and colchicine which again points to inflammatory etiology. Troponin levels have come down significantly. At this time, we can just keep her on NSAIDs. With regard to diarrhea, not clear if it is a colchicine side effect versus viral gastroenteritis. Can hold colchicine and see how she does. Discussed with Dr. Gatica. Time Spent With Patient Time: Total time managing care of this patient today ____ minutes. Progress Note: Quality Stroke Does the patient have a stroke diagnosis?: No Procedures Date of Service Date of Service: 01/30/25
--- NOTE | 2025-01-30 09:40 | MHC.CM.PN ---
[facility] IMM completed today 01/30/25.
[2025-01-30] MEDS: Lactated Ringers 1,000 ML 100 ML IVCONT ×2 (09:42→18:32)
[2025-01-30] MEDS: Loperamide HCl 2 MG CAPSULE PO (09:42)
[2025-01-30] MEDS: 0.9 % Sodium Chloride Flush 3 ML SYRINGE IVFLUSH (09:43)
--- NOTE | 2025-01-30 13:06 | P.PNIM_ITS ---
Subjective Subjective Date of Service: 01/30/25 Interval History: seen and evaluated reports diarrhea Had chest pain on occasions BP runs soft to low HR better controlled no other overnight events Review of Systems Review of Systems: Yes all other systems are reviewed and are negative Physical Exam 2 Vital Signs: Vital Signs: Last Vital Signs Temp 98.1 F 01/30/25 12:00 Pulse 98 01/30/25 12:00 Resp 14 01/30/25 12:00 BP 106/65 01/30/25 12:00 Pulse Ox 98 01/30/25 12:00 O2 Del Method Room Air 01/30/25 12:00 BMI result Body Mass Index 24.4 Const: Other: Constitutional : Awake, interactive, not in distress Neck : Normal inspection, Supple Cardiovascular : RRR, no JVP, no lower extremity edema Respiratory : good bilateral air entry, no crackles, wheezes or rhonchi Gastrointestinal: soft, lax, Normal bowel sounds, Non tender Skin : Warm, Dry Neurological : Alert & oriented x3, No focal deficit , CN 2-12 within normal Objective Data Active Medications Acetaminophen (Acetaminophen 325 Mg Tablet) 650 mg PO Q6H PRN PRN Reason: Pain, Mild 1-3,fever,headache Last Admin: 01/28/25 21:01 Dose: 650 mg Documented By: RUI Calcium Carbonate (Calcium Carbonate 750 Mg Tab.Chew) 750 mg PO Q4H PRN PRN Reason: Heartburn Enoxaparin Sodium (Enoxaparin Sodium 40 Mg/0.4 Ml Syringe) 40 mg SUBCUT Q24H [facility] Last Admin: 01/29/25 17:06 Dose: 40 mg Documented By: CHRISTIE Lactated Ringer's (Lr) 1,000 mls @ 100 mls/hr IVCONT .Q10H [facility] Last Admin: 01/30/25 09:42 Dose: 100 mls/hr Documented By: JOSE Indomethacin (Indomethacin 25 Mg Capsule) 50 mg PO BID [facility] Last Admin: 01/30/25 09:15 Dose: 50 mg Documented By: JOSE Loperamide HCl (Loperamide Hcl 2 Mg Capsule) 2 mg PO Q4H PRN PRN Reason: Diarrhea Last Admin: 01/30/25 09:42 Dose: 2 mg Documented By: JOSE Magnesium Hydroxide (Milk Of Magnesia 30 Ml Oral.Susp) 30 ml PO DAILY PRN PRN Reason: Constipation Melatonin (Melatonin 3 Mg Tablet) 6 mg PO BEDTIME PRN PRN Reason: Insomnia Omeprazole (Omeprazole 20 Mg Capsule.) 20 mg PO DAILY@0630 [facility] Last Admin: 01/30/25 06:43 Dose: 20 mg Documented By: STEPHANIE Ondansetron HCl (Ondansetron Hcl 4 Mg/2 Ml Vial) 4 mg IVPUSH Q8H PRN PRN Reason: Nausea and Vomiting Last Admin: 01/29/25 21:46 Dose: 4 mg Documented By: STEPHANIE Sodium Chloride (0.9 % Sodium Chloride Flush 3 Ml Syringe) 3 ml IVFLUSH QSHIFT [facility] Last Admin: 01/30/25 09:43 Dose: 3 ml Documented By: JOSE Labs 01/28/25 09:24 01/30/25 06:33 Labs: Laboratory Results - last 24 hr 01/30/25 06:33 Anion Gap 15 Estim Creat Clear Calc 111.7 Estimated GFR > 60 Random Glucose 83 Calcium 9.2 D B-Natriuretic Peptide 33 Assessment and Plan (1) Myocarditis: Status: Acute (2) Chest pain: Status: Acute (3) Elevated troponin: Status: Acute (4) Chest pain, pleuritic: Status: Acute (5) Diarrhea: Status: Acute Plan Pt is a 29-year-old female with without any known significant PMH not on home prescription medications who presents to the ED with?chest pain since midnight last night. Pt will be admitted to the hospital for treatment and further evaluation of elevated troponins and chest pain concerning for myocarditis. Chest pain with Elevated troponins concern of acute myocarditis post viral illness Initial troponin 189.1 with repeat 190.8, down to 36, EKG without significant ST elevations Continue indomethacin 50 mg b.i.d., DC colchicine GI prophylaxis with omeprazole 20 mg daily Echocardiogram showing low normal EF of 50-55% and inferior wall motion abnormality Trended down troponin, CRP, ESR Cardiology input appreciated Monitor on telemetry Hypotension not due to severe sepsis give IV fluids Diarrhea Imodium prn Full Code DVT Prophylaxis: Lovenox Pt will require a hospitalizationovernight for treatment of?chest pain and elevated troponins concerning for myocarditis. Pt will require hospital level care for trending of labs including troponins and inflammatory markers, close cardiac monitoring, and echocardiogram Quality Stroke Does the patient have a stroke diagnosis?: No VTE Prior VTE?: No VTE Risk Level:: Medical - moderate - high VTE Device Contraindication: Treatment Not Indicated VTE Drug Contraindication: N/A - Med Ordered
[2025-01-30] MEDS: Enoxaparin Sodium 40 MG/0.4 ML SYRINGE SUBCUT (18:19)
[2025-01-31 03:30] VITALS: BP 108/68; PULSE 80; RESP 16; TEMP 36.3; O2SAT 99
[2025-01-31] MEDS: Lactated Ringers 1,000 ML 100 ML IVCONT (03:57)
[2025-01-31] MEDS: Omeprazole 20 MG CAPSULE.DR PO (06:16)
[2025-01-31 06:22] LABS: MANUAL DIFF FLAG NO
[2025-01-31 06:25] LABS: Basophils Percent Auto 0.2 % (0-2); Eosinophils Absolute Auto 0.2 X10*3/uL (0.0-0.4); Eosinophils Percent Auto 5.2 % (0-4); Hematocrit 32.1 % (37.0-47.0); Hemoglobin 11.1 g/dl (12.0-16.0); Imm Gran Abs Auto 0.04 X10*3/uL (0.00-0.03); Imm Gran Pct Auto 0.9 % (0.0-0.4); Lymphocytes Absolute Auto 1.9 X10*3/uL (1.2-4.9); Lymphocytes Percent Auto 41.6 % (20-40); Mean Corpuscular HGB Conc 34.6 g/dl (31.0-35.0); Mean Corpuscular Hemoglobin 29.1 pg (27.0-33.0); Mean Platelet Volume 9.4 fL (9.4-12.3); Monocytes Absolute Auto 0.4 X10*3/uL (0.1-1.2); Monocytes Percent Auto 9.5 % (2-11); Neutrophils Percent Auto 42.6 % (45-73); Platelet Count 251 X10*3/uL (160-400); Red Blood Count 3.82 X10*6/uL (4.20-5.50); Red Cell Distribution Width 12.6 % (11.0-16.0); White Blood Count 4.6 X10*3/uL (4.8-10.8)
[2025-01-31 06:40] LABS: Anion Gap 11 (12-20); Blood Urea Nitrogen 7 mg/dL (9-16); Calcium 8.6 mg/dL (8.4-10.2); Carbon Dioxide 23 mmol/L (22-29); Chloride 109 mmol/L (96-108); Creatinine Clr Calc Pharmacy 119.6; Estimated Glomerular Filt Rate > 60; Glucose Random 83 mg/dL (60-115); Potassium 3.8 mmol/L (3.3-5.1); Sodium 139 mmol/L (135-145)
[2025-01-31 07:05] VITALS: BP 102/63; PULSE 68; RESP 18; TEMP 37.2; O2SAT 98
[2025-01-31] MEDS: 0.9 % Sodium Chloride Flush 3 ML SYRINGE IVFLUSH (09:10)
--- NOTE | 2025-01-31 09:10 | PM.PNCARD ---
Subjective Subjective Date of Service: 01/31/25 Interval history: Patient states she feels fine. No further diarrhea. No chest pain. Feels good. Review of Systems Review of Systems Yes all other systems are reviewed and are negative Constitutional: Reports as per HPI and Reports no additional constitutional complaints Eyes: Reports as per HPI and Denies no additional eye complaints Denies system reviewed and no additional complaints, except as documented and Reports as per HPI Cardiovascular: Reports as per HPI, Reports no additional cardiovascular complaints, Denies acrocyanosis, Denies cool extremities, Denies chest pain, Denies leg edema, Denies lightheadedness, Denies palpitations and Denies dyspnea Respiratory: Reports as per HPI, Denies no additional respiratory complaints and Denies dyspnea Gastrointestinal: Reports as per HPI and Denies no additional gastrointestinal complaints Genitourinary: Reports as per HPI Musculoskeletal: Reports no additional musculoskeletal complaints and Reports as per HPI Skin/Breast: Reports system reviewed and no additional complaints, except as docu Reports system reviewed and no additional complaints, except as documented and Reports as per HPI Psychiatric: Reports no additional psychiatric complaints and Reports as per HPI Endocrine: Reports no additional endocrine complaints, Reports as per HPI and Denies palpitations Hematologic/Lymphatic: Reports no additional hematologic/lymphatic complaints and Reports as per HPI Allergic/Immunologic: Reports no additional allergic/immunologic complaints and Reports as per HPI Physical Exam Vital Signs: Last Vital Signs Temp 98.9 F 01/31/25 07:05 Pulse 68 01/31/25 07:05 Resp 18 01/31/25 07:05 BP 102/63 01/31/25 07:05 Pulse Ox 98 01/31/25 07:05 O2 Del Method Room Air 01/31/25 07:05 BMI result Body Mass Index 24.4 Const General: comfortable and no acute distress Orientation/consciousness: patient oriented x3 HEENT Other: Unremarkable Head: Yes normal to inspection Neck Neck: Yes normal visual inspection Chest Chest palpation & inspection: normal inspection of the chest Resp Auscultation: clear to auscultation bilaterally Cardio Palpation: normal PMI Heart sounds: S1 normal heart sound present, S2 normal heart sound present, no gallops, no murmurs and no rubs GI Palpation (GI): Soft to palpation Back/Spine/Pelvis Other: unremarkable Skin General skin exam: no rashes or lesions noted Neuro General: patient oriented x3 Extrem General: Yes normal to inspection Psych Mental Status: mental status grossly normal Objective Labs and Meds 01/31/25 06:07 01/31/25 06:07 Lab results: Laboratory Results - last 24 hr 01/31/25 06:07 WBC 4.6 L RBC 3.82 L Hgb 11.1 L Hct 32.1 L MCV 84.0 MCH 29.1 MCHC 34.6 RDW 12.6 Plt Count 251 MPV 9.4 Immature Gran % (Auto) 0.9 H Neut % (Auto) 42.6 L Lymph % (Auto) 41.6 H [place] % (Auto) 9.5 Eos % (Auto) 5.2 H Baso % (Auto) 0.2 Lymph # (Auto) 1.9 [place] # (Auto) 0.4 Eos # (Auto) 0.2 Baso # (Auto) 0.0 Abs Immat Gran (auto) 0.04 H Absolute Neuts (auto) 2.0 Absolute Nucleated RBC 0.000 Nucleated RBC % (auto) 0.0 Sodium 139 Potassium 3.8 Chloride 109 H Carbon Dioxide 23 Anion Gap 11 L BUN 7 L Creatinine 0.56 Estim Creat Clear Calc 119.6 Estimated GFR > 60 Random Glucose 83 Calcium 8.6 D Progress Note: A&P Assessment and plan (1) Elevated troponin: Status: Acute (2) Myocarditis: Status: Acute (3) Acute viral syndrome: Status: Acute Plan In follow-up EKG, sinus rhythm; T inversion in aVL with nonspecific change in lead 1; otherwise unremarkable. In the echocardiogram, LVEF 59%. Possible basal inferior/inferolateral hypokinesis. Trivial pericardial effusion. Overall, working diagnosis is acute myopericarditis. Recent upper respiratory viral symptoms. Other diagnosis like coronary spasm, dissection extra are much less likely. Pain seems much better on NSAIDs and colchicine which again points to inflammatory etiology. In fact, she no longer has chest pains at all. Troponin levels have come down significantly. At this time, we can just keep her on NSAIDs. With regard to diarrhea, not clear if it is a colchicine side effect versus viral gastroenteritis. It seems that she has taken colchicine in the past for gout and never had diarrhea. Hence possible gastroenteritis but not clear. Any case, that is also resolved. Discharge planning. Follow-up will be arranged. Discussed with Dr. Gatica. Time Spent With Patient Time: Total time managing care of this patient today ____ minutes. Progress Note: Quality Stroke Does the patient have a stroke diagnosis?: No Procedures Date of Service Date of Service: 01/31/25
[2025-01-31] MEDS: Indomethacin 25 MG CAPSULE 50 MG PO (09:13)
--- NOTE | 2025-01-31 10:20 | PM.DS ---
DS: Providers Provider Date of Service: 01/31/25 Date of admission: 01/28/25 14:53 Date of discharge: 01/31/25 Primary care physician: None Physician Consults: 01/28/25 14:58 Consult to Cardiology Routine Consulting Provider: [facility] Reason for consultation: Elevated trops & CP, ?myocarditis DS: Diagnosis Discharge Diagnosis (1) Elevated troponin: Status: Acute (2) Myocarditis: Status: Acute (3) Acute viral syndrome: Status: Acute (4) Diarrhea: Status: Acute (5) Chest pain: Status: Acute DS: Summary Hospital Course Hospital Course: Admission note HPI Pt is a 29-year-old female with without any known significant PMH not on home prescription medications who presents to the ED with?chest pain since midnight last night. Pt reports she was awoken from sleep with primarily left-sided, non-radiating chest pain she initially thought was heartburn has her chest felt ?on fire?. Pt was able to fall back asleep, but pain persisted in the morning when she awoke. Also experienced some SOB, difficulty breathing, and palpitations. Pt reports last week on Wednesday came down with a ?tough cold? while visiting [place]. Pt experienced fever, chills, rhinorrhea, cough, and laryngitis. Currently no fever or chills, nausea, vomiting, or abdominal pain. In the ED pt was tachycardic up to 118, vitals otherwise stable and WNL. Labs were significant for initial troponin 189.1 with repeat flat at 190.8, CPK 185, CRP mildly elevated at 0.59. No leukocytosis. Stable H&H. ESR WNL at 14. No significant electrolyte abnormalities. Renal function baseline. Hepatic function baseline. BNP WNL. Tested negative for flu, COVID, RSV. CXR showed no acute cardiopulmonary findings. CTA of chest negative for PE. EKG demonstrated sinus tachycardia of [address] abnormality. Pt was treated with IVF, ketorolac, ondansetron, morphine, and colchicine. Pt will be admitted to the hospital for treatment and further evaluation of elevated troponins and chest pain concerning for myocarditis. Hospital course The patient was treated for Chest pain with Elevated troponins at time of presentation with concern of acute myocarditis post viral illness as she was evaluated by cardiology. Initial troponin 189.1 with repeat 190.8, down to 36, EKG without significant ST elevations mainly T inversion in aVL with nonspecific change in lead 1. Treated with Colchicine and indomethacin 50 mg b.i.d with resolution of chest pain. she developed diarrhea so colchicine was held even she reported tolerating it for 3 months before. kept on GI prophylaxis with omeprazole 20 mg daily. Echocardiogram showing LVEF 59%. Possible basal inferior/inferolateral hypokinesis. Trivial pericardial effusion. Blood work trended down troponin, CRP, ESR. Evaluated by cardiology who recommended to continue NSAIDs therapy. Will continue Colchicine as well on discharge and she understand to stop it if she starts having diarrhea again. She can not tolerate steroids so was not used at any stage. She will follow up with cardiology as outpatient. Noticed to have Hypotension which not due to severe sepsis. improved with IV fluids. For Diarrhea Imodium prn with good response. could be viral illness not clearly from colchicine. so will try to challenge with colchicine again on discharge. Discharge plan Take Colchicine if tolerated daily for the next 3 months , hold if start to have diarrhea Continue Indomethacin two times a day for the next 2 weeks Omeprazole for stomach protection Imodium as needed for diarrhea Follow with dr mcdonald [place] [facility] [place] come back to ED for any worsening chest pain, palpitations, fluid edema or fever Time Attestation Discharge Coordination Time (in mins): 42 Quality: Safe Use of Opioids Does Pt have an Active Cancer Diagnosis on the Problem List?: No Quality: Stroke Does the patient have a stroke diagnosis?: No Physical Exam Vital Signs: Vital Signs: Last Vital Signs Temp 98.9 F 01/31/25 07:05 Pulse 68 01/31/25 07:05 Resp 18 01/31/25 07:05 BP 102/63 01/31/25 07:05 Pulse Ox 98 01/31/25 07:05 O2 Del Method Room Air 01/31/25 07:05 BMI result Body Mass Index 24.4 Const: Other: Constitutional : Awake, interactive, not in distress Neck : Normal inspection, Supple Cardiovascular : RRR, no JVP, no lower extremity edema Respiratory : good bilateral air entry, no crackles, wheezes or rhonchi Gastrointestinal: soft, lax, Normal bowel sounds, Non tender Skin : Warm, Dry Neurological : Alert & oriented x3, No focal deficit , CN 2-12 within normal DS: Data Data Completed and Pending Labs on day of discharge: Laboratory Results - last 24 hr 01/31/25 06:07 WBC 4.6 L RBC 3.82 L Hgb 11.1 L Hct 32.1 L MCV 84.0 MCH 29.1 MCHC 34.6 RDW 12.6 Plt Count 251 MPV 9.4 Immature Gran % (Auto) 0.9 H Neut % (Auto) 42.6 L Lymph % (Auto) 41.6 H [place] % (Auto) 9.5 Eos % (Auto) 5.2 H Baso % (Auto) 0.2 Lymph # (Auto) 1.9 [place] # (Auto) 0.4 Eos # (Auto) 0.2 Baso # (Auto) 0.0 Abs Immat Gran (auto) 0.04 H Absolute Neuts (auto) 2.0 Absolute Nucleated RBC 0.000 Nucleated RBC % (auto) 0.0 Sodium 139 Potassium 3.8 Chloride 109 H Carbon Dioxide 23 Anion Gap 11 L BUN 7 L Creatinine 0.56 Estim Creat Clear Calc 119.6 Estimated GFR > 60 Random Glucose 83 Calcium 8.6 D Discharge Plan Discharge Anticipated Discharge Date/Time: 01/31/25 09:52 Patient Disposition: Home, Self-Care Discharge Diagnosis: Myocarditis Referrals: Physician,None [Primary Care Provider] - 1 Week Discharge Medications: New indomethacin 25 mg Capsule 25 mg PO BID 14 Days Qty: 28 0RF Rx Instructions: Two times a day for next week then two times as needed for 1 week omeprazole 20 mg Capsule,Delayed Release(Dr/Ec) 20 mg PO DAILY@0630 Qty: 90 0RF colchicine 0.6 mg tablet 0.6 mg PO DAILY Qty: 90 0RF loperamide 2 mg Capsule 2 mg PO Q4H PRN (Reason: Diarrhea) Qty: 20 0RF Continued omega-3 fatty acids-fish oil 684-1,200 mg Capsule,Delayed Release(Dr/Ec) 1 cap PO DAILY magnesium glycinate 100 mg Tablet 200 mg PO DAILY Rx Instructions: CANNOT TOLERATE MAGNESIUM OXIDE; DIARRHEA Discharge Orders: Discharge Order (Routine); Ordered 01/31/25 Ordered By: Brittany Gatica Diet: Advance to usual diet Activity on Discharge: As tolerated Stand Alone Forms: Patient Portal Discharge page Print Language: Swedish Care Plan Goals: Take Colchicine if tolerated daily for the next 3 months , hold if start to have diarrhea Continue Indomethacin two times a day for the next 2 weeks Omeprazole for stomach protection Imodium as needed for diarrhea Follow with dr mcdonald [place] [facility] [place] [facility] [place] 2 [place] come back to ED for any worsening chest pain, palpitations, fluid edema or fever Health Concerns: Myocarditis Plan of Treatment: Colchicine Indomethacin Assessment: as above
--- NOTE | 2025-01-31 10:20 | MHC.CM.PN ---
Pt has been medically cleared for DC, she will go home via family transport, plan is self care.
[2025-01-31 11:19] LABS: Uric Acid 5.9 mg/dL (2.4-5.7)
--- NOTE | 2025-02-08 15:29 | P.CDIM_ITS ---
PROVIDER RESPONSE TEXT: To clarify, the appropriate diagnosis supported by the clinical indicators: Infective (viral) myocarditis: possible QUERY TEXT: PHYSICIAN'S DOCUMENTATION REQUEST Date of Query: 01/31/2025 09:06 AM EDT Patient Name: Carrol Dunbar Admit Date: 01/28/2025 Dear Brittany Gatica MD, A review of the medical record indicates additional documentation may be needed. Please review below and update the documentation accordingly. Clinical Indicators: Cardiology consult note 01/30 - Working diagnosis of acute myocarditis. Recent upper respiratory viral syndrome. With regard to diarrhea, not clear if it is a colchicine side effect vs. viral gastroenteritis. Progress note 01/30 - Chest pain with elevated troponins. Concern of acute myocarditis post viral illness. Initial troponin 189.1 with repeat 190.8, down to 36, EKG w/o significant ST elevations. Continue indomethacin 50 mg b.i.d. Based on the above, could you clarify any further specifics to the noted acute myocarditis? Infective (viral) myocarditis suspected, possible, probable, cannot rule out etc. Toxic myocarditis Idiopathic myocarditis Isolated myocarditis Other specified Other (explain) Clinically unable to determine (explain) Thank you, Elizabet Pugh, CCS, CDIS Use of terms such as suspected, likely, concern for, or probable (associated with a specific diagnosi s that is being evaluated, monitored, or treated as if it exists) are acceptable and can be coded in the inpatient se tting, when documented at the time of discharge. Please use your independent medical judgment in providing your response. THIS QUERY IS PART OF THE PERMANENT MEDICAL RECORD
== END 2025-01-31 14:40 | disposition home or self-care (01) | DRG 316 ==
LOC: HO.ED 12:35 → HO.EDOVER 15:09 → HO.IMC 01-29 16:26
PROVIDERS: Admitting Provider Student in an Organized Health Care Education/Training Program; Emergency Provider Emergency Medicine; Visit Provider Student in an Organized Health Care Education/Training Program
DX: I40.0 Infective myocarditis (principal); B97.89 Other viral agents as the cause of diseases classified elsewhere; I95.9 Hypotension, unspecified; Z20.822 Contact with and (suspected) exposure to COVID-19; Z79.899 Other long term (current) drug therapy
CPT/HCPCS: 0241U; 36415; 71045; 71275; 80048; 80076; 82550; 83690; 83735; 83880; 84484; 84550; 84702; 85025; 85379; 85652; 86140; 93005; 93306; 99285; J1650; J1885; J2270; J2405; J7120; Q9957; Q9967

== ENCOUNTER → 2025-01-28 09:05 | Outpatient (BNV) | payer OTHER, SELFPAY | PROVIDERS: Emergency Provider Emergency Medicine; Visit Provider Internal Medicine Cardiovascular Disease | DX: I45.10 Unspecified right bundle-branch block (principal); R00.0 Tachycardia, unspecified | CPT/HCPCS: 93010 ==

== ENCOUNTER → 2025-01-28 09:15 | Outpatient (BNV) | payer OTHER, SELFPAY | PROVIDERS: Emergency Provider Emergency Medicine; Visit Provider Radiology Diagnostic Radiology | DX: R07.9 Chest pain, unspecified (principal) | CPT/HCPCS: 71045; 71275 ==

== ENCOUNTER 2025-01-28 14:53 | Outpatient (BNV) | payer OTHER, SELFPAY | END 2025-01-30 08:31 | PROVIDERS: Admitting Provider Student in an Organized Health Care Education/Training Program; Emergency Provider Emergency Medicine; Visit Provider Internal Medicine | DX: R07.9 Chest pain, unspecified (principal); R79.89 Other specified abnormal findings of blood chemistry | CPT/HCPCS: 93010 ==

== ENCOUNTER 2025-01-28 14:53 | Outpatient (BNV) | payer OTHER, SELFPAY | END 2025-01-29 07:00 | PROVIDERS: Admitting Provider Student in an Organized Health Care Education/Training Program; Emergency Provider Emergency Medicine; Visit Provider Internal Medicine | DX: I31.39 Other pericardial effusion (noninflammatory) (principal); R93.1 Abnormal findings on diagnostic imaging of heart and coronary circulation | CPT/HCPCS: 93306 ==

== ENCOUNTER → 2025-01-28 14:53 | Outpatient (BNV) | payer OTHER, SELFPAY | PROVIDERS: Admitting Provider Student in an Organized Health Care Education/Training Program; Emergency Provider Emergency Medicine; Visit Provider Internal Medicine | DX: R79.89 Other specified abnormal findings of blood chemistry (principal); I51.4 Myocarditis, unspecified; B34.9 Viral infection, unspecified | CPT/HCPCS: 99223; 99232 ==

== ENCOUNTER → 2025-01-28 14:53 | Outpatient (BNV) | payer OTHER, SELFPAY | PROVIDERS: Admitting Provider Student in an Organized Health Care Education/Training Program; Emergency Provider Emergency Medicine; Visit Provider Student in an Organized Health Care Education/Training Program | DX: I51.4 Myocarditis, unspecified (principal); R07.9 Chest pain, unspecified; R79.89 Other specified abnormal findings of blood chemistry; R07.81 Pleurodynia; R19.7 Diarrhea, unspecified | CPT/HCPCS: 99223; 99232; 99239 ==

== ENCOUNTER → 2025-02-28 08:40 | Outpatient (REF) | payer OTHER, SELFPAY ==
--- NOTE | 2025-02-28 08:42 | CA_ITS ---
Transthoracic Echocardiogram Patient (Last, First, Middle): Carrol Dunbar, Gender: Female Date of : 1995 Age: 30 Procedure Date: 02/28/2025 Procedure Type: Transthoracic Echocardiogram Location: OP Height: 157.48 cm Weight: 57.61 kg BSA: 1.58 m2 Heart Rate: bpm BP: 100 / 60 mmHg Sand Shoveler: TO Referring MD: Domenico Josue MD [employer]: Carlos Latif MD Symptoms: I51.4 - Myocarditis, unspecified Study Quality: Adequate w contrast ECG Rhythm: Sinus Conclusions: - 1. Normal LV ejection fraction 55-60% with no regional wall motion abnormality 2. Trivial pericardial effusion Findings Procedure Information Contrast agent, definity, is being given per protocol without apparent complications. Left Ventricle Normal left ventricular size, thickness, and systolic function. The visually estimated ejection fraction is between 55-60%. Spectral Doppler is indicative of a normal filling pattern. Pericardium/Pleural There is a trivial pericardial effusion. Measurements 2D Linear Measurements IVSd: 0.53 0.6-0.9/0.6-1.0 cm LVIDd: 4.73 3.9-5.3/4.2-5.9 cm LVIDd Index: 2.99 2.4-3.2/2.2-3.1 cm/m2 LVIDs: 3.05 2.0-3.6 cm LVPWd: 0.58 0.7-1.1 cm LV Mass: 96.13 67-162/88-224 g LV Mass Index: 60.84 43-95/49-115 g/m2 LVOT Diam: 2.10 3.0+(-)1.3 cm 2D Systolic Function EF 4C: 56.30 >55% EF 2C: 55.30 >55% EF BiP: 54.60 >55% Mitral Valve MV Pk E: 0.87 MV PK A: 0.22 MV Decel Time: 192.00 E/A: 3.90 E'Lateral: 19.30 E'Medial: 12.20 E/E' Med: 7.20 E/E' Lat: 4.50 PHT: 56.00 MVA PHT: 3.93 Decel Piatt: 4.55 LVOT LVOT Pk Monster: 0.90 LVOT Mn Monster: 0.62 LVOT VTI: 0.21 LVOT Pk Grad: 3.00 LVOT Mn Grad: 2.00 LVOT Diam: 2.10 LVOT Area: 3.46 Diastolic Function MV Pk E: 0.87 MV Pk A: 0.22 E/A: 3.90 E'Medial: 12.20 E/E' Med: 7.20 E' Laterial: 19.30 E/E' Lat: 4.50 Tricuspid Valve RA Press: 3.00 Updated in Other Vendor System with Status of Final Carlos Latif MD electronically signed on 03/01/2025 2:06:30 PM with status of Final
== END ==
LOC: HO.CARD 08:40
PROVIDERS: Visit Provider Internal Medicine
DX: I51.4 Myocarditis, unspecified (principal)
CPT/HCPCS: 93308; Q9957

== ENCOUNTER → 2025-02-28 08:42 | Outpatient (BNV) | payer OTHER, SELFPAY | PROVIDERS: Visit Provider Internal Medicine Cardiovascular Disease | DX: I31.39 Other pericardial effusion (noninflammatory) (principal) | CPT/HCPCS: 93308; 93321 ==

== ENCOUNTER 2025-03-14 15:27 | Outpatient (AMB) | payer OTHER, SELFPAY ==
[2025-03-14 15:34] VITALS: BP 96/64; PULSE 86; RESP 14; TEMP 37.3; O2SAT 97; BMI 24.2
--- NOTE | 2025-03-14 15:34 | A.OFFPC_ITS ---
Vital Signs 03/14/25 15:34 Height 5 ft 1 in Weight 128 lb 3.2 oz BMI 24.2 BP 96/64 Blood Pressure Location Lt brachial Position Sitting Respiration 14 Pulse 86 Pulse Source Pulse Oximeter Temp 99.1 F Temp Source Oral Pulse Oximetry (%) 97 Oxygen Delivery Method Room Air Intake Visit Reasons: establish care Intake Note: Patient is a new patient here to establish care. Patient reports that she had no previous primary care physician. Medical records have not been requested and have not been received. 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 Accompanied by: Self / Same As Patient Allergies No Known Allergies Allergy (Verified 03/14/25 15:58) Medication List - Last Reconciled 03/14/25 by CORNELL Horne colchicine 0.6 mg PO DAILY magnesium glycinate 200 mg PO DAILY omega-3 fatty acids-fish oil 684-1,200 mg 1 cap PO DAILY Tobacco use date assessed: 03/14/25 Dental Screening Dental Screen Date: 03/14/25 Did you have a dental visit in the last 12 months?: Yes Did you have a dental problem in the last 6 months where you did not have access to dental care?: No Was dental information given to patient?: Patient has dentist HPI establish care HPI Details The patient establishing care and physical completed Previous PCP: Came from [facility] 2 years ago; she is a [place]. 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 Mother glaucoma, Problem: The patient is a 30-year-old female presenting with concerns regarding myocarditis and a family history of breast cancer. She experienced myocarditis a month ago, with recent hospital admission due to this condition. The patient reports resolution of the pain associated with myocarditis but notes that she occasionally experiences tachycardia, especially noticeable while driving, which is a new symptom post-myocarditis. There is no previous history of anxiety. She will have a follow-up with a product development technician in March. On another note, the patient has a concerning family history of breast cancer on the maternal side, including two aunts and a cousin, with the cousin's diagnosis occurring at the young age of 37 with an aggressive form of breast cancer. She would like to know if she is a candidate for mammograms [facility] Medical History (Updated 03/18/25 @ 13:16 by CORNELL Horne) Myocarditis No pertinent past medical history Surgical History Hx of section Hx of LASIK Family History Mother Glaucoma Vertigo Father No problems noted. Daughter Age: 5 No problems noted. Other FH: breast cancer Social History (Updated 03/14/25 @ 15:50 by Melissa Giraldo [facility]) Household Members: Family Housing: House Do you presently have visiting nurse or other home services: No Alcohol intake: never Patient Tobacco Use Status: Never used Tobacco e-Cigarette/Vaping Use: Never Used service: No Current occupational status: student Cognitive needs: No Hearing needs: No Vision needs: No Female Reproductive History Menstrual Age of Menarche: 13 Duration of menses: 3-5 days Date of last menstrual period: 02/25/25 control method: none Questionnaire PHQ-9 Over the last 2 weeks, how often have you been bothered by any of the following problems? 1. Little interest or pleasure in doing things: not at all 2. Feeling down, depressed, or hopeless: not at all 3. Trouble falling or staying asleep, or sleeping too much: not at all 4. Feeling tired or having little energy: not at all 5. Poor appetite or overeating: not at all 6. Feeling bad about yourself - or that you are a failure or have let yourself or your family down: not at all 7. Trouble concentrating on things, such as reading the newspaper or watching television: not at all 8. Moving or speaking so slowly that other people could have noticed. Or the opposite - being so fidgety or restless that you have been moving around a lot more than usual: not at all 9. Thoughts that you would be better off or of hurting yourself in some way: not at all Total score: 0 Depression Screening Interpretation: Negative Depression Screening Done: Yes 81744 - PHQ-9 Billing: Yes Source: Developed by Drs. Juan Rodriguez, Janet Deleon, Erick Billings and colleagues, with an educational thor from [employer]. Thrive Questionnaire Date Thrive assessed: 03/14/25 I am a: Patient What is your living situation today?: I have a steady place to live Within the past 12 months, did the food you bought not last and you didn't have the money to get more?: Never true Within the past 12 months, did you worry whether your food would run out before you got money to buy more?: Never true Do you have trouble paying for medicines?: No Do you have trouble getting transportation to medical appointments?: No Do you have trouble paying your heating and electricity bill?: No Do you have trouble taking care of your child, family member or friend?: No Do you have trouble with day-to-day activities such as bathing, preparing meals, shopping, managing finances, etc.?: No Are you currently unemployed and looking for a job?: No Are you interested in more education?: No Please select the resources that you would like help with: None Currently or been in a relationship where the following occur: No concerns reported THRIVE Score: 0 AUDIT C Alcohol Use Questionnaire (AUDIT-C) 1. How often do you have a drink containing alcohol?: Never 3. How often do you have six or more drinks on one occasion?: Never Total Score: 0 Score Reviewed/Action Taken: No ARGENIS-7 AMB Questionnaire ARGENIS-7 Date ARGENIS - 7 assessed: 03/14/25 Feeling nervous, anxious, or on edge: 0 = Not at all Not being able to stop or control worryin = Not at all Worrying too much about different things: 0 = Not at all Trouble relaxin = Not at all Being so restless that it is hard to sit still: 0 = Not at all Becoming easily annoyed or irritable: 0 = Not at all Feeling afraid as if something awful might happen: 0 = Not at all Total ARGENIS-7 score (0-4 normal; 5-9 mild; 10-14 moderate; 15-21 severe): 0 Source: Developed by Drs. Juan Rodriguez, Janet Deleon, Erick Billings and colleagues, with an educational thor from [employer]. ARGENIS-7 Assessment Billing ARGENIS-7 Assessment Tool: ARGENIS-7 Assessment 98874 Review of Systems Const Denies headache(s) Eyes Denies loss of vision ENT Denies vertigo, Denies dizziness, Denies headache(s) and Denies sore throat Card Denies chest pain, Reports rapid heart rate (intermittently-not sure if it is because she is worrying about myocarditis), Denies leg edema and Denies lighthe adedness Resp Denies cough, Denies hemoptysis and Denies wheezing GI Denies abdominal pain, Denies melena, Denies constipation, Denies diarrhea and Denies vomiting Denies urinary frequency, Denies dysuria and Denies urinary urgency Musc Denies arthralgias, Denies joint swelling, Denies numbness, Denies tingling and Reports other (heel pain) Neuro Denies Abnormal speech present, Denies behavioral changes, Denies vertigo, Denies dizziness, Denies headache(s), Denies loss of vision, Denies memory loss, Denies numbness and Denies tingling Psych Denies anxiety, Denies behavioral changes, Denies depression, Denies memory loss and Denies panic attacks Flaco/Lymph Denies easy bleeding and Denies easy bruising Aller/Immun Denies wheezing Physical exam (Primary Care) Vital Signs: Last Vital Signs Temp 99.1 F 03/14/25 15:34 Pulse 86 03/14/25 15:34 Resp 14 03/14/25 15:34 BP 96/64 03/14/25 15:34 Pulse Ox 97 03/14/25 15:34 Oxygen Delivery Method Room Air 03/14/25 15:34 BMI result Body Mass Index 24.2 Tobacco/Smoking Status: Tobacco use Status Tobacco use date assessed 03/14/25 03/14/25 15:49 Patient Tobacco Use Status Never used Tobacco 03/14/25 15:50 e-Cigarette/Vaping Use Never Used 03/14/25 15:49 PHQ-9: PHQ-9 Score PHQ-9: Total score 0 03/14/25 16:22 Depression Screening Interpretation: Negative Thrive Assessment: Date of Thrive Assessment Date Thrive assessed 03/14/25 03/14/25 15:49 Currently or been in a relationship where the following occur: No concerns reported Const General: healthy appearing, no acute distress, alert and awake Nutritional Appearance: well nourished Orientation/consciousness: oriented to person, oriented to place and oriented to time HENMT Ears: TM's normal bilaterally General nose exam: Normal nasal mucous membranes and turbinates present Eyes Conjunctivae: conjunctivae normal Sclerae: sclerae normal Pupils: Equal, round and reactive pupils present Neck Neck: Yes no lymphadenopathy and Yes no JVD Thyroid: Thyroid normal Carotids: no bruits Resp Effort & Inspection: normal respiratory effort and not tachypneic Auscultation: no crackles, no rales, no rhonchi and no wheezes Cardio Rate: regular rate Rhythm: regular rhythm Heart sounds: no murmurs and normal S1 and S2 GI Palpation (GI): Soft to palpation, nontender, no hepatomegaly and no splenomegaly Auscultation: normal bowel sounds Skin General skin exam: no rashes or lesions noted and dry skin Neuro General: oriented to person, oriented to place and oriented to time Cranial nerves: Yes Equal, round and reactive pupils present Speech: No Abnormal speech present Gait exam (Neuro): Normal gait present Motor exam (neuro): no tremor noted Extrem Right upper extremity: full ROM Left upper extremity: full ROM Right lower extremity: full ROM; no edema Left lower extremity: full ROM; no edema Psych Mental Status: mental status grossly normal Speech and movement: Normal speech and movement present Affect: normal affect Attitude: cooperative Thought process: Normal thought process present Coding Level of Care Code New Pt Prev Care 18-39yr([id number] Diagnoses Encounter for medical examination to establish care Z00. Encounter for annual routine gynecological examination Z01. Acute myocarditis, unspecified myocarditis type I40.9 Myocarditis type: unspecified Chronicity: acute Heel pain, unspecified laterality M79.673 Laterality: unspecified laterality Family history of breast cancer Z80.3 Additional Codes ARGENIS-7 Assessment Billing - ARGENIS-7 Assessment Tool: ARGENIS-7 Assessment 86013 ([id number]) PHQ-9 - 39482 - PHQ-9 Billing: Yes ([id number]) Time Spent (min) 38 Assessment & Plan Assessment & Plan (1) Encounter for medical examination to establish care: Code(s): Z00.00 - Encounter for general adult medical examination without abnormal findings Category: Medical (2) Encounter for annual routine gynecological examination: Code(s): Z01.419 - Encounter for gynecological examination (general) (routine) without abnormal findings Category: Medical (3) Myocarditis: Code(s): I51.4 - Myocarditis, unspecified Category: Medical Qualifiers: Myocarditis type: unspecified Chronicity: acute Qualified Code(s): I40.9 - Acute myocarditis, unspecified (4) Heel pain: Code(s): M79.673 - Pain in unspecified foot Category: Medical Qualifiers: Laterality: unspecified laterality Qualified Code(s): M79.673 - Pain in unspecified foot (5) Family history of breast cancer: Code(s): Z80.3 - Family history of malignant neoplasm of breast Category: Medical Plan I plan to continue monitoring the patient's heart condition through her upcoming product development technician appointment in March, especially following her myocarditis occurrence. Her exercise regimen will be reconsidered based on the product development technician?s clearance. Regarding her family history of breast cancer, a referral to an OBGYN was made to perform yearly gynecological exam. General lab work was ordered to evaluate cholesterol, thyroid function, and vitamin levels to address any deficiencies and guide her overall health management. The patient is experiencing heel soreness when standing for extensive periods. Encouraged comfortable shoe wear; plans to go to the running shoes store to be evaluated for arch-appropriate sneakers. Patient was informed and verbally consented to the use of an ambient scribe for clinic note documentation during this visit. Orders: Orders Vitamin D 25-OH Total 03/15/25 Z00. - Encounter for general adult medical examination without abnormal findings UA CC w/rflx Micro + Cult 03/15/25 Z. - Encounter for general adult medical examination without abnormal findings MM tomosynthesis screening BI Today Z80.3 - Family history of malignant neoplasm of breast Complete Blood Count Auto Diff 03/15/25 Z. - Encounter for general adult medical examination without abnormal findings Comprehensive [place]. Panel Fast 03/15/25 Z. - Encounter for general adult medical examination without abnormal findings Lipid Panel 03/15/25 Z. - Encounter for general adult medical examination without abnormal findings Glucose Fasting 03/15/25. - Encounter for general adult medical examination without abnormal findings TSH reflex Free T4 03/15/25 Z. - Encounter for general adult medical examination without abnormal findings Referrals POCKET SECRETARY ASSEMBLER Referral Z01.419 - Encounter for gynecological examination (general) (routine) without abnormal findings Patient Instructions: - Follow up with a product development technician in March for myocarditis evaluation. - Await OBGYN consultation for annual evaluation - Proceed with lab tests, ensuring fasting for accurate results. - Continue decaf coffee consumption and try to maintain a healthy diet. - Monitor for any new symptoms and seek care if concerned. - Consider mammogram for breast cancer risk evaluation based on family history.
== END 2025-03-14 16:24 | disposition home or self-care (01) ==
DX: Z00.00 Encounter for general adult medical examination without abnormal findings (principal); Z01.419 Encounter for gynecological examination (general) (routine) without abnormal findings; I40.9 Acute myocarditis, unspecified; M79.673 Pain in unspecified foot; Z80.3 Family history of malignant neoplasm of breast

== ENCOUNTER → 2025-03-14 15:27 | Outpatient (BNVA) | payer OTHER, SELFPAY | DX: Z00.00 Encounter for general adult medical examination without abnormal findings (principal); I40.9 Acute myocarditis, unspecified; M79.673 Pain in unspecified foot; Z80.3 Family history of malignant neoplasm of breast | CPT/HCPCS: 96127 ==

== ENCOUNTER 2025-03-15 08:27 | Outpatient (REF) | payer OTHER, SELFPAY ==
[2025-03-15 10:32] LABS: MANUAL DIFF FLAG NO
[2025-03-15 10:44] LABS: Basophils Percent Auto 0.5 % (0-2); Eosinophils Absolute Auto 0.2 X10*3/uL (0.0-0.4); Eosinophils Percent Auto 3.7 % (0-4); Hematocrit 40.1 % (37.0-47.0); Hemoglobin 13.2 g/dl (12.0-16.0); Imm Gran Abs Auto 0.01 X10*3/uL (0.00-0.03); Imm Gran Pct Auto 0.2 % (0.0-0.4); Lymphocytes Absolute Auto 1.4 X10*3/uL (1.2-4.9); Lymphocytes Percent Auto 35.6 % (20-40); Mean Corpuscular HGB Conc 32.9 g/dl (31.0-35.0); Mean Corpuscular Hemoglobin 29.7 pg (27.0-33.0); Mean Corpuscular Volume 90.3 fL (80.0-98.0); Mean Platelet Volume 10.6 fL (9.4-12.3); Monocytes Absolute Auto 0.3 X10*3/uL (0.1-1.2); Monocytes Percent Auto 7.5 % (2-11); Neutrophils Absolute Auto 2.1 x10*3/uL (2.0-8.3); Neutrophils Percent Auto 52.5 % (45-73); Platelet Count 250 X10*3/uL (160-400); Red Blood Count 4.44 X10*6/uL (4.20-5.50); Red Cell Distribution Width 13.2 % (11.0-16.0)
[2025-03-15 11:08] LABS: Alanine Aminotransferase 26 U/L (0-31); Albumin Level 4.4 g/dL (3.5-5.0); Alkaline Phosphatase 39 U/L (39-117); Anion Gap 11 (12-20); Aspartate Amino Transferase 26 U/L (5-31); Bilirubin Total 0.5 mg/dL (0.0-1.0); Blood Urea Nitrogen 11 mg/dL (9-16); Calcium 9.5 mg/dL (8.4-10.2); Carbon Dioxide 28 mmol/L (22-29); Chloride 103 mmol/L (96-108); Cholesterol 229 mg/dL (<200); Estimated Glomerular Filt Rate > 60; Glucose Fasting 84 mg/dL (60-99); HDL Cholesterol 55 mg/dL (>40); LDL Cholesterol Calculated 159 mg/dL (<100); Potassium 4.1 mmol/L (3.3-5.1); Sodium 138 mmol/L (135-145); Total Protein 6.9 g/dL (6.5-8.0); Triglycerides 78 mg/dL (<150)
[2025-03-15 11:22] LABS: Appearance Urine Cloudy; Color Urine Yellow; Glucose Urine UA Negative (Negative); Leukocyte Esterase Urine Negative (Negative); Nitrite Urine Negative (Negative); UMIC TRIGGER UACC YES; Urine Blood Small (1+) (Negative); Urine Ketones 40 mg/dL (Negative); Urine Protein Negative (Neg-Trace)
[2025-03-15 11:28] LABS: Bacteria Urine 1+ (None Seen); Hyaline Casts Urine 0-2 /LPF (0-2); Vitamin D 25-OH Total 40.4 ng/mL (>30); WBC Urine 0-5 /HPF (0-5)
== END 2025-03-15 08:28 | disposition home or self-care (01) ==
LOC: HO.HMGCLDS 08:27
DX: Z00.00 Encounter for general adult medical examination without abnormal findings (principal)
CPT/HCPCS: 36415; 80053; 80061; 81001; 82306; 84443; 85025

== ENCOUNTER 2025-03-22 13:37 | Outpatient (AMB) | payer OTHER, SELFPAY ==
--- NOTE | 2025-03-22 13:39 | A.OFFVIS_ITS ---
Vital Signs 03/22/25 14:11 Height 5 ft 1 in Weight 113 lb 5.082 oz BMI 21.4 BP 90/60 Blood Pressure Location Lt brachial Position Sitting Pulse 70 Pulse Source Monitor Intake Visit Reasons: following up echo Conditioning Yard Supervisor Required: Yes Conditioning Yard Supervisor Language: Chief Executive Officer Name: [id number] Accompanied by: Self / Same As Patient Allergies No Known Allergies Allergy (Verified 03/14/25 15:58) Medication List - Last Reconciled 03/22/25 by Domenico Josue MD colchicine 0.6 mg PO DAILY magnesium glycinate 200 mg PO DAILY omega-3 fatty acids-fish oil 684-1,200 mg 1 cap PO DAILY HPI Comments Details: Carrol returns for follow-up. She was seen in the hospital in consultation few weeks back. She does not really have any major health issues and is fairly healthy. 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 She was having some respiratory symptoms in [place]. Then developed left-sided chest pain that felt like heartburn. Then came to the ER. Troponins were abnormal and CK was also elevated. Then diagnosed to have acute myocarditis. She was put on NSAIDs as well as colchicine. Those symptoms seem to have improved and she no longer has any chest pain. She does feel some heart palpitations every so often. No other concerning cardiac symptoms at this time. [facility] Medical History (Updated 03/18/25 @ 13:16 by CORNELL Horne) Myocarditis No pertinent past medical history Surgical History Hx of section Hx of LASIK Family History Mother Glaucoma Vertigo Father No problems noted. Daughter Age: 5 No problems noted. Other FH: breast cancer Social History Household Members: Family Housing: House Do you presently have visiting nurse or other home services: No Alcohol intake: never Patient Tobacco Use Status: Never used Tobacco e-Cigarette/Vaping Use: Never Used service: No Current occupational status: student Cognitive needs: No Hearing needs: No Vision needs: No Female Reproductive History Menstrual Age of Menarche: 13 Review of Systems Const Denies chills, Denies fatigue, Denies fever(s), Denies frequent falls, Denies we akness, Denies weight gain and Denies weight loss ENT Denies dizziness Card Denies chest pain, Denies leg edema, Denies lightheadedness, Reports palpi tations, Reports dyspnea and Reports dyspnea on exertion Resp Denies cough, Reports dyspnea and Reports dyspnea on exertion GI Denies hematochezia Musc Denies abnormal gait, Denies muscle weakness, Denies numbness, Denies radiating pain into limb and Denies tingling Neuro Denies abnormal gait, Denies dizziness, Denies frequent falls, Denies numbness, Denies tingling and Denies weakness Endo Denies fatigue and Reports palpitations Physical Exam Vital Signs: Last Vital Signs Pulse 70 03/22/25 14:11 BP 90/60 03/22/25 14:11 BMI result Body Mass Index 21.4 Const General: comfortable and no acute distress Orientation/consciousness: patient oriented x3 HEENT Other: Unremarkable Head: Yes normal to inspection Neck Neck: Yes normal visual inspection Chest Chest palpation & inspection: normal inspection of the chest Resp Auscultation: clear to auscultation bilaterally Cardio Palpation: normal PMI Heart sounds: S1 normal heart sound present, S2 normal heart sound present, no gallops, no murmurs and no rubs GI Palpation (GI): Soft to palpation Back/Spine/Pelvis Other: unremarkable Skin General skin exam: no rashes or lesions noted Neuro General: patient oriented x3 Extrem General: Yes normal to inspection Psych Mental Status: mental status grossly normal Office Procedures EKG Details: EKG with underlying sinus rhythm at 70/Min; no significant ST-T changes; [place] [id number], Complete Assessment & Plan Assessment & Plan (1) Myocarditis: Code(s): I51.4 - Myocarditis, unspecified Category: Medical Qualifiers: Myocarditis type: unspecified Chronicity: acute Qualified Code(s): I40.9 - Acute myocarditis, unspecified Plan In the echocardiogram from admission, LVEF 59%. Possible basal inferior/inferolateral hypokinesis. Trivial pericardial effusion. Otherwise unremarkable. In the repeat study, LVEF 55-60% without any reported wall motion abnormality. Again trivial pericardial effusion. Chest CTA was unremarkable. Troponin levels during the time of hospitalization include 189, 191 followed by 36. CK levels have at 185 and 216. CRP was borderline abnormal at 0.59. ESR was within range. Cardiac BNP was 33, within range. Overall, suspected myocarditis and she seems to have fully recovered. We will get a cardiac MRI to evaluate further. With regard to palpitations not entirely clear what it is. Could be just sinus tachycardia. We will get a Holter monitor for that. She is no longer on NSAIDs. With regard to colchicine, ideally about 3 months. But as she is otherwise well, may stopped. Follow-up after the above testing. Otherwise mainly reassurance. Discussion Notes During the consultation, I explained the necessity of the Holter monitor to evaluate her palpitations and potential arrhythmias. The option of cardiac MRI was discussed to ensure no residual inflammation remains beyond the detection capabilities of EKG and ultrasound, consensually agreed upon with reference to her upcoming travel. I clarified the lack of need for stress testing given her current symptom profile and recent imaging results. Reassurance was provided regarding the management of her trivial pericardial effusion as commonly benign. She understood the recommendation to halt colchicine post-prescribed duration. Patient was informed and verbally consented to the use of an ambient scribe for clinic note documentation during this visit. Orders: Orders MR cardiac morph fnct w/wo con Today I40.9 - Acute myocarditis, unspecified ECG 3 day holter monitor Today I40.9 - Acute myocarditis, unspecified, R00.2 - Palpitations Patient Instructions: - Schedule and complete an MRI of the heart, with full consideration of your travel plans. - Wear and return the Holter monitor as instructed. - You may resume exercise gradually, as symptoms permit. - Report any new or worsening symptoms promptly. - Follow up for test results and further care discussions. Coding Level of Care Code Est Pt Level 4 (44619) Complex EM visit Add On G2211 Diagnoses Acute myocarditis, unspecified myocarditis type I40.9 Myocarditis type: unspecified Chronicity: acute CPT Codes EKG - CPT: 88845-[id number], Complete ([id number])
[2025-03-22 14:11] VITALS: BP 90/60; PULSE 70; BMI 21.4
== END 2025-03-22 15:05 | disposition home or self-care (01) ==
PROVIDERS: PCP Internal Medicine; Visit Provider Internal Medicine
DX: I40.9 Acute myocarditis, unspecified (principal)
CPT/HCPCS: 93010; 99214; G2211

== ENCOUNTER → 2025-03-22 13:37 | Outpatient (BNVA) | payer OTHER, SELFPAY | PROVIDERS: Visit Provider Internal Medicine | DX: I40.9 Acute myocarditis, unspecified (principal) | CPT/HCPCS: 93005; 99212 ==

== ENCOUNTER → 2025-04-02 11:09 | Outpatient (REF) | payer OTHER, SELFPAY | LOC: HO.CARD 11:09 | PROVIDERS: PCP Internal Medicine; Visit Provider Internal Medicine | DX: R00.2 Palpitations (principal); I40.9 Acute myocarditis, unspecified | CPT/HCPCS: 93242 ==

== ENCOUNTER → 2025-04-02 11:12 | Outpatient (BNV) | payer OTHER, SELFPAY | PROVIDERS: PCP Internal Medicine; Visit Provider Internal Medicine | DX: R00.1 Bradycardia, unspecified (principal) | CPT/HCPCS: 93244 ==

== ENCOUNTER 2025-04-25 15:23 | Outpatient (AMB) | payer OTHER, SELFPAY ==
[2025-04-25 15:35] VITALS: BP 96/54; PULSE 85; RESP 14; TEMP 37.2; O2SAT 98; BMI 24.3
--- NOTE | 2025-04-25 15:35 | MHC.PC.OV ---
Vital Signs 04/25/25 15:35 Height 5 ft 1 in Weight 128 lb 9.6 oz BMI 24.3 BP 96/54 L Blood Pressure Location Lt brachial Position Sitting Respiration 14 Pulse 85 Pulse Source Pulse Oximeter Temp 99.0 F Temp Source Oral Pulse Oximetry (%) 98 Oxygen Delivery Method Room Air Intake Visit Reasons: lab review Vehicle Trimmer Required: No Accompanied by: Self / Same As Patient Allergies No Known Allergies Allergy (Verified 04/25/25 15:50) Medication List - Last Reconciled 04/25/25 by CORNELL Horne magnesium glycinate 200 mg PO DAILY omega-3 fatty acids-fish oil 684-1,200 mg 1 cap PO DAILY Tobacco use date assessed: 04/25/25 Dental Screening Dental Screen Date: 04/25/25 Did you have a dental visit in the last 12 months?: Yes Did you have a dental problem in the last 6 months where you did not have access to dental care?: No Was dental information given to patient?: Patient has dentist HPI lab review HPI Details The patient is a 30-year-old female presenting with concerns related to suspected hyperuricemia following wine consumption, hemorrhoidal bleeding attributed to diet-induced constipation, and a familial tendency towards elevated cholesterol levels. She experienced joint inflammation post-alcohol intake, which alleviated after increased hydration, indicating a potential link to transient hyperuricemia. Concurrently, she reports hemorrhoidal bleeding following increased protein consumption, causing constipation. The patient is managing her cholesterol levels and has ongoing discussions with a outside event sales specialist, considering the hereditary factor from her family history. Reports that she has a pending MRI to evaluate her heart due her recent myocarditis. [facility] Medical History (Updated 05/13/25 @ 13:55 by CORNELL Horne) Myocarditis No pertinent past medical history Surgical History Hx of section Hx of LASIK Family History Mother Glaucoma Vertigo Father No problems noted. Daughter Age: 5 No problems noted. Other FH: breast cancer Social History Household Members: Family Housing: House Do you presently have visiting nurse or other home services: No Alcohol intake: never Patient Tobacco Use Status: Never used Tobacco e-Cigarette/Vaping Use: Never Used service: No Current occupational status: student Cognitive needs: No Hearing needs: No Vision needs: No Female Reproductive History Menstrual Age of Menarche: 13 Questionnaire Thrive Questionnaire Date Thrive assessed: 04/25/25 I am a: Patient What is your living situation today?: I have a steady place to live Within the past 12 months, did the food you bought not last and you didn't have the money to get more?: Never true Within the past 12 months, did you worry whether your food would run out before you got money to buy more?: Never true Do you have trouble paying for medicines?: No Do you have trouble getting transportation to medical appointments?: No Do you have trouble paying your heating and electricity bill?: No Do you have trouble taking care of your child, family member or friend?: No Do you have trouble with day-to-day activities such as bathing, preparing meals, shopping, managing finances, etc.?: No Are you currently unemployed and looking for a job?: No Are you interested in more education?: No Please select the resources that you would like help with: None Currently or been in a relationship where the following occur: No concerns reported THRIVE Score: 0 AUDIT C Alcohol Use Questionnaire (AUDIT-C) 1. How often do you have a drink containing alcohol?: Monthly or less 2. How many drinks containing alcohol do you have on a typical day when you are drinking?: 1 or 2 3. How often do you have six or more drinks on one occasion?: Never Total Score: 1 Score Reviewed/Action Taken: No ARGENIS-7 AMB Questionnaire ARGENIS-7 Date ARGENIS - 7 assessed: 03/14/25 Source: Developed by Drs. Juna Rodriguez, Janet Deleon, Erick Billings and colleagues, with an educational thor from [employer]. Review of Systems Const Denies headache(s) Eyes Denies loss of vision ENT Denies vertigo, Denies dizziness, Denies headache(s) and Denies sore throat Card Denies chest pain, Denies leg edema and Denies lightheadedness Resp Denies cough, Denies hemoptysis and Denies wheezing GI Denies abdominal pain, Denies melena, Denies constipation, Denies diarrhea and Denies vomiting Denies urinary frequency, Denies dysuria and Denies urinary urgency Musc Denies arthralgias, Denies joint swelling, Denies numbness and Denies tingling Neuro Denies Abnormal speech present, Denies behavioral changes, Denies vertigo, Denies dizziness, Denies headache(s), Denies loss of vision, Denies memory loss, Denies numbness and Denies tingling Psych Denies anxiety, Denies behavioral changes, Denies depression, Denies memory loss and Denies panic attacks Flaco/Lymph Denies easy bleeding and Denies easy bruising Aller/Immun Denies wheezing Physical exam (Primary Care) Vital Signs: Last Vital Signs Temp 99.0 F 04/25/25 15:35 Pulse 85 04/25/25 15:35 Resp 14 04/25/25 15:35 BP 96/54 L 04/25/25 15:35 Pulse Ox 98 04/25/25 15:35 Oxygen Delivery Method Room Air 04/25/25 15:35 BMI result Body Mass Index 24.3 Tobacco/Smoking Status: Tobacco use Status Tobacco use date assessed 04/25/25 04/25/25 15:46 Patient Tobacco Use Status Never used Tobacco 04/25/25 15:46 e-Cigarette/Vaping Use Never Used 04/25/25 15:46 Thrive Assessment: Date of Thrive Assessment Date Thrive assessed 04/25/25 04/25/25 15:46 Currently or been in a relationship where the following occur: No concerns reported Const General: healthy appearing, no acute distress, alert and awake Nutritional Appearance: well nourished Orientation/consciousness: oriented to person, oriented to place and oriented to time HENMT Ears: TM's normal bilaterally General nose exam: Normal nasal mucous membranes and turbinates present Eyes Conjunctivae: conjunctivae normal Sclerae: sclerae normal Pupils: Equal, round and reactive pupils present Neck Neck: Yes no lymphadenopathy and Yes no JVD Thyroid: Thyroid normal Carotids: no bruits Resp Effort & Inspection: normal respiratory effort and not tachypneic Auscultation: no crackles, no rales, no rhonchi and no wheezes Cardio Rate: regular rate Rhythm: regular rhythm Heart sounds: no murmurs and normal S1 and S2 GI Palpation (GI): Soft to palpation, nontender, no hepatomegaly and no splenomegaly Auscultation: normal bowel sounds Skin General skin exam: no rashes or lesions noted and dry skin Neuro General: oriented to person, oriented to place and oriented to time Cranial nerves: Yes Equal, round and reactive pupils present Speech: No Abnormal speech present Gait exam (Neuro): Normal gait present Motor exam (neuro): no tremor noted Extrem Right upper extremity: full ROM Left upper extremity: full ROM Right lower extremity: full ROM; no edema Left lower extremity: full ROM; no edema Psych Mental Status: mental status grossly normal Speech and movement: Normal speech and movement present Affect: normal affect Attitude: cooperative Thought process: Normal thought process present Results Reviewed Results Reviewed: Laboratory Tests 01/31/25 03/15/25 06:07 08:35 WBC 4.0 L RBC 4.44 Hgb 13.2 Hct 40.1 D MCV 90.3 MCH 29.7 MCHC 32.9 RDW 13.2 Plt Count 250 Sodium 138 Potassium 4.1 Chloride 103 Carbon Dioxide 28 Anion Gap 11 L BUN 11 Creatinine 0.58 Estimated GFR > 60 Fasting Glucose 84 Uric Acid 5.9 H Calcium 9.5 D Total Bilirubin 0.5 AST 26 ALT 26 Alkaline Phosphatase 39 Total Protein 6.9 Albumin 4.4 Triglycerides 78 Cholesterol 229 H LDL Cholesterol, Calc 159 H HDL Cholesterol 55 25-OH Vitamin D Total 40.4 TSH 0.70 Urine Color Yellow Urine Appearance Cloudy Urine pH 6.0 Ur Specific [place] 1.020 Urine Protein Negative Urine Glucose (UA) Negative Urine Ketones 40 Urine Blood Small (1+) H Urine Nitrite Negative Ur Leukocyte Esterase Negative Urine RBC 6-10 H Urine WBC 0-5 Ur Squamous Epith Cells 11-20 Urine Bacteria 1+ Hyaline Casts 0-2 Coding Level of Care Code Est Pt Level 3 (74537) Diagnoses Pure hypercholesterolemia E78.00 Asymptomatic microscopic hematuria R31.21 Hematuria type: asymptomatic microscopic Arthralgia, unspecified joint M25.50 Joint pain location: unspecified Slow transit constipation K59.01 Constipation type: slow transit constipation Hemorrhoids, unspecified hemorrhoid type K64.9 Hemorrhoid type: unspecified Time Spent (min) 32 Assessment & Plan Assessment & Plan (1) Pure hypercholesterolemia: Code(s): E78.00 - Pure hypercholesterolemia, unspecified Category: Medical (2) Hematuria: Code(s): R31.9 - Hematuria, unspecified Category: Medical Qualifiers: Hematuria type: asymptomatic microscopic Qualified Code(s): R31.21 - Asymptomatic microscopic hematuria (3) Joint pain: Code(s): M25.50 - Pain in unspecified joint Category: Medical Qualifiers: Joint pain location: unspecified Qualified Code(s): M25.50 - Pain in unspecified joint (4) Constipation: Code(s): K59.00 - Constipation, unspecified Category: Medical Qualifiers: Constipation type: slow transit constipation Qualified Code(s): K59.01 - Slow transit constipation (5) Hemorrhoid: Code(s): K64.9 - Unspecified hemorrhoids Category: Medical Qualifiers: Hemorrhoid type: unspecified Qualified Code(s): K64.9 - Unspecified hemorrhoids Plan The management will focus on monitoring uric acid levels post-alcohol consumption resulting in unspecified joint pain, addressing hemorrhoidal symptoms through increased water and fiber intake to alleviated constipation, and proactively managing cholesterol levels through dietary intervention. A outside event sales specialist consultation further explores familial hyperlipidemia and necessary dietary adjustments. Hematuria noted on last urinalysis, will repeat UA and add an urine cytology to further evaluate. Regular follow-ups will be necessary to reassess the effectiveness of the dietary and lifestyle modifications. Patient was informed and verbally consented to the use of an ambient scribe for clinic note documentation during this visit. Orders: Orders Uric Acid 04/26/25 M25.50 - Pain in unspecified joint Lipid Panel 3 Months E78.00 - Pure hypercholesterolemia, unspecified Basic Metabolic Panel 04/26/25 Z01.818 - Encounter for other preprocedural examination, M25.50 - Pain in unspecified joint UA CC w/rflx Micro + Cult 04/26/25 R31.9 - Hematuria, unspecified Urine Cytology 04/26/25 R31.9 - Hematuria, unspecified
== END 2025-04-25 16:26 | disposition home or self-care (01) ==
LOC: HO.HMCH 15:24
DX: E78.00 Pure hypercholesterolemia, unspecified (principal); R31.21 Asymptomatic microscopic hematuria; M25.50 Pain in unspecified joint; K59.01 Slow transit constipation; K64.9 Unspecified hemorrhoids

== ENCOUNTER → 2025-04-25 15:23 | Outpatient (BNVA) | payer OTHER, SELFPAY | DX: E78.00 Pure hypercholesterolemia, unspecified (principal); R31.21 Asymptomatic microscopic hematuria; M25.50 Pain in unspecified joint; K59.01 Slow transit constipation; K64.9 Unspecified hemorrhoids | CPT/HCPCS: 99212 ==

== ENCOUNTER 2025-04-26 07:56 | Outpatient (REF) | payer OTHER, SELFPAY ==
[2025-04-26 10:07] LABS: Urine Cytology See Pathology rpt
[2025-04-26 10:14] LABS: Appearance Urine Clear; Color Urine Yellow; Glucose Urine UA Negative (Negative); Leukocyte Esterase Urine Negative (Negative); Nitrite Urine Negative (Negative); PH 6.5 (5.0-9.0); Specific Gravity - Urine <= 1.005 (1.005-1.025); UMIC TRIGGER UACC YES; Urine Blood Trace (Negative); Urine Ketones Trace mg/dL (Negative); Urine Protein Negative (Neg-Trace)
[2025-04-26 10:21] LABS: Bacteria Urine None Seen (None Seen); Hyaline Casts Urine 0-2 /LPF (0-2); Squamous Epithelial Cell Urine 0-2 /HPF (0-2); WBC Urine 0-5 /HPF (0-5)
[2025-04-26 10:55] LABS: Anion Gap 12 (12-20); Blood Urea Nitrogen 13 mg/dL (9-16); Calcium 9.4 mg/dL (8.4-10.2); Carbon Dioxide 28 mmol/L (22-29); Chloride 104 mmol/L (96-108); Estimated Glomerular Filt Rate > 60; Glucose Random 81 mg/dL (60-115); Potassium 3.8 mmol/L (3.3-5.1); Sodium 140 mmol/L (135-145); Uric Acid 3.1 mg/dL (2.4-5.7)
== END 2025-04-26 07:57 | disposition home or self-care (01) ==
LOC: HO.HMGCLDS 07:56
PROVIDERS: PCP Internal Medicine
DX: R31.29 Other microscopic hematuria (principal); Z01.818 Encounter for other preprocedural examination; M25.549 Pain in joints of unspecified hand; I51.4 Myocarditis, unspecified
CPT/HCPCS: 36415; 80048; 81001; 84550; 88112

== ENCOUNTER 2025-07-26 15:16 | Outpatient (AMB) | payer OTHER, SELFPAY ==
[2025-07-26 15:20] VITALS: BP 108/60; PULSE 70; RESP 18; TEMP 36.3; O2SAT 93; BMI 23.9
--- NOTE | 2025-07-26 15:20 | MHC.PC.OV ---
Vital Signs 07/26/25 15:20 Height 5 ft 1 in Weight 126 lb 6 oz BMI 23.9 BP 108/60 Blood Pressure Location Lt brachial Position Sitting Respiration 18 Pulse 70 Pulse Source Pulse Oximeter Temp 97.3 F Temp Source Temporal Artery Scan Pulse Oximetry (%) 93 Oxygen Delivery Method Room Air Intake Visit Reasons: hld Principal Cyber Engineer Required: No Accompanied by: Self / Same As Patient Allergies No Known Allergies Allergy (Verified 07/27/25 07:39) Medication List - Last Reconciled 07/26/25 by CORNELL Horne ascorbate calcium (vitamin C) 500 mg PO DAILY biotin mcg PO magnesium glycinate 200 mg PO DAILY omega-3 fatty acids-fish oil 684-1,200 mg 1 cap PO DAILY Tobacco use date assessed: 07/26/25 Dental Screening Dental Screen Date: 07/26/25 Did you have a dental visit in the last 12 months?: Yes Did you have a dental problem in the last 6 months where you did not have access to dental care?: No Was dental information given to patient?: Patient has dentist HPI hld HPI Details The patient is a 30-year-old female presenting with hyperlipidemia and myocarditis The patient has a history of elevated cholesterol levels, which were previously identified and required re-evaluation through a lipid panel. She has been making dietary changes and increasing physical activity by going to the gym to manage her cholesterol levels. She did not complete her preordered labs to evaluate her cholesterol. The patient will also transitioning care to a female provider (DEDRA Mcclain) and will follow up with her. [facility] Medical History Myocarditis No pertinent past medical history Surgical History Hx of section Hx of LASIK Family History Mother Glaucoma Vertigo Father No problems noted. Daughter Age: 5 No problems noted. Other FH: breast cancer Social History Household Members: Family Housing: House Do you presently have visiting nurse or other home services: No Alcohol intake: never Patient Tobacco Use Status: Never used Tobacco e-Cigarette/Vaping Use: Never Used service: No Current occupational status: student Cognitive needs: No Hearing needs: No Vision needs: No Female Reproductive History Menstrual Age of Menarche: 13 Questionnaire PHQ-9 Over the last 2 weeks, how often have you been bothered by any of the following problems? 1. Little interest or pleasure in doing things: not at all 2. Feeling down, depressed, or hopeless: not at all 3. Trouble falling or staying asleep, or sleeping too much: not at all 4. Feeling tired or having little energy: not at all 5. Poor appetite or overeating: not at all 6. Feeling bad about yourself - or that you are a failure or have let yourself or your family down: not at all 7. Trouble concentrating on things, such as reading the newspaper or watching television: not at all 8. Moving or speaking so slowly that other people could have noticed. Or the opposite - being so fidgety or restless that you have been moving around a lot more than usual: not at all 9. Thoughts that you would be better off or of hurting yourself in some way: not at all Total score: 0 Depression Screening Interpretation: Negative Depression Screening Done: Yes Source: Developed by Drs. Juan Rodriguez, Janet Deleon, Erick Billings and colleagues, with an educational thor from [employer]. Thrive Questionnaire Date Thrive assessed: 07/26/25 I am a: Patient What is your living situation today?: I have a steady place to live Within the past 12 months, did the food you bought not last and you didn't have the money to get more?: Never true Within the past 12 months, did you worry whether your food would run out before you got money to buy more?: Never true Do you have trouble paying for medicines?: No Do you have trouble getting transportation to medical appointments?: No Do you have trouble paying your heating and electricity bill?: No Do you have trouble taking care of your child, family member or friend?: No Do you have trouble with day-to-day activities such as bathing, preparing meals, shopping, managing finances, etc.?: No Are you currently unemployed and looking for a job?: No Are you interested in more education?: No Please select the resources that you would like help with: None Currently or been in a relationship where the following occur: No concerns reported THRIVE Score: 0 AUDIT C Alcohol Use Questionnaire (AUDIT-C) 1. How often do you have a drink containing alcohol?: Monthly or less 2. How many drinks containing alcohol do you have on a typical day when you are drinking?: 1 or 2 3. How often do you have six or more drinks on one occasion?: Never Total Score: 1 Score Reviewed/Action Taken: No ARGENIS-7 AMB Questionnaire ARGENIS-7 Date ARGENIS - 7 assessed: 07/26/25 Feeling nervous, anxious, or on edge: 0 = Not at all Not being able to stop or control worryin = Not at all Worrying too much about different things: 0 = Not at all Trouble relaxin = Not at all Being so restless that it is hard to sit still: 0 = Not at all Becoming easily annoyed or irritable: 0 = Not at all Feeling afraid as if something awful might happen: 0 = Not at all Total ARGENIS-7 score (0-4 normal; 5-9 mild; 10-14 moderate; 15-21 severe): 0 Source: Developed by Drs. Juan Rodriguez, Janet Deleon, Erick Billings and colleagues, with an educational thor from [employer]. Review of Systems Const Denies body aches, Denies chills, Denies fever(s), Denies headache(s) and Denies poor appetite Eyes Reports no additional complaints ENT Denies dysphagia, Denies dizziness, Denies headache(s) and Denies odynophagia Card Denies chest pain, Denies syncope, Denies edema, Denies irregular heart rhythm, Denies lightheadedness, Denies dyspnea and Reports other (intermittent heart palpitation) Resp Denies cough and Denies dyspnea GI Denies abdominal pain, Denies constipation, Denies dysphagia, Denies diarrhea, Denies nausea, Denies odynophagia and Denies vomiting Reports no additional complaints Musc Reports no additional complaints and Denies abnormal gait Skin/Breast Reports system reviewed and no additional complaints, except as documented Neuro Denies abnormal gait, Denies dizziness, Denies syncope and Denies headache(s) Psych Reports no additional complaints Physical exam (Primary Care) Vital Signs: Last Vital Signs Temp 97.3 F 09/04/25 15:20 Pulse 70 07/26/25 15:20 Resp 18 07/26/25 15:20 BP 108/60 07/26/25 15:20 Pulse Ox 93 07/26/25 15:20 Oxygen Delivery Method Room Air 07/26/25 15:20 BMI result Body Mass Index 23.9 Tobacco/Smoking Status: Tobacco use Status Tobacco use date assessed 07/26/25 07/26/25 15:23 Patient Tobacco Use Status Never used Tobacco 07/26/25 15:23 e-Cigarette/Vaping Use Never Used 07/26/25 15:23 PHQ-9: PHQ-9 Score PHQ-9: Total score 0 07/26/25 15:57 Depression Screening Interpretation: Negative Thrive Assessment: Date of Thrive Assessment Date Thrive assessed 07/26/25 07/26/25 15:23 Currently or been in a relationship where the following occur: No concerns reported Const General: cooperative, healthy appearing, comfortable and no acute distress Orientation/consciousness: patient oriented x3 HENMT Head: Yes normocephalic Ears: hearing grossly normal bilaterally General nose exam: Normal external nose present Eyes General: appearance normal, both eyes and all related structures Conjunctivae: conjunctivae normal Neck Neck: Yes full ROM and Yes no lymphadenopathy Resp Effort & Inspection: normal respiratory effort Auscultation: clear to auscultation bilaterally, no crackles, no rales, no rhonchi and no wheezes Cardio Rate: regular rate Rhythm: regular rhythm Skin General skin exam: no rashes or lesions noted Neuro General: patient oriented x3 Gait exam (Neuro): Normal gait present Extrem General: Yes normal to inspection, Yes full ROM and No edema Psych Affect: normal affect Attitude: cooperative Insight: Good insight present (Psych) Judgement: Good judgement present (Psych) Coding Level of Care Code Est Pt Level 3 (93712) Diagnoses Pure hypercholesterolemia E78.00 Acute myocarditis, unspecified myocarditis type I40.9 Myocarditis type: unspecified Chronicity: acute Time Spent (min) 33 Assessment & Plan Assessment & Plan (1) Pure hypercholesterolemia: Code(s): E78.00 - Pure hypercholesterolemia, unspecified Category: Medical Plan: Triglycerides 78, total cholesterol twitching 29, LDL 159, HDL 55 on 03/15/2025 The patient has not completed repeat labs as yet and was encouraged to get this done as soon as possible Discussed lifestyle modifications including dietary changes and physical activity The patient is also in the process of transitioning care to [facility] and we will follow up with her (2) Myocarditis: Code(s): I51.4 - Myocarditis, unspecified Category: Medical Qualifiers: Myocarditis type: unspecified Chronicity: acute Qualified Code(s): I40.9 - Acute myocarditis, unspecified Plan: Patient went into the hospital in January due to left-sided chest pain and was diagnosed with myocarditis. She was treated with NSAIDs and colchicine with good effects regarding chest pain. On echocardiogram from admission, LVEF 59%. Possible basal inferior/inferolateral hypokinesis. Trivial pericardial effusion. Otherwise unremarkable. In the repeat study, LVEF 55-60% without any reported wall motion abnormality. Again trivial pericardial effusion. Chest CTA was unremarkable. Troponin levels during the time of hospitalization include 189, 191 followed by 36. CK levels have at 185 and 216. CRP was borderline abnormal at 0.59. ESR was within range. Cardiac BNP was 33, within range Repeat MRI: MRI showed normal left ventricular systolic function with the EF of 59%. No regional wall motion abnormalities. Normal right ventricular size and function with RVEF 55%. No pericardial thickening, enhancement, or effusion Patient continues to be without chest pain or shortness of breath. Intermittent heart palpitation but drinks high amount of caffeine. She has a follow up appointment with Cardiology on 07/31/2025.
== END 2025-07-26 16:18 | disposition home or self-care (01) ==
LOC: HO.HMCH 15:17
DX: E78.00 Pure hypercholesterolemia, unspecified (principal); I40.9 Acute myocarditis, unspecified

== ENCOUNTER → 2025-07-26 15:16 | Outpatient (BNVA) | payer OTHER, SELFPAY | DX: E78.00 Pure hypercholesterolemia, unspecified (principal); I40.9 Acute myocarditis, unspecified | CPT/HCPCS: 96127; 99212 ==

== ENCOUNTER 2025-07-31 10:15 | Outpatient (AMB) | payer OTHER, SELFPAY ==
[2025-07-31 10:18] VITALS: BP 112/64; PULSE 70; BMI 24.3
--- NOTE | 2025-07-31 10:18 | MHC.OFFVIS ---
Vital Signs 07/31/25 10:18 Height 5 ft 1 in Weight 128 lb 11.999 oz BMI 24.3 BP 112/64 Blood Pressure Location Lt brachial Position Sitting Pulse 70 Pulse Source Pulse Oximeter Intake Visit Reasons: 4 mth f/up-cardiac MRI-Holter Account Information Clerk Required: No Accompanied by: Self / Same As Patient Allergies No Known Allergies Allergy (Verified 07/31/25 10:23) Medication List - Last Reconciled 07/31/25 by Domenico Josue MD ascorbate calcium (vitamin C) 500 mg PO DAILY biotin mcg PO magnesium glycinate 200 mg PO DAILY omega-3 fatty acids-fish oil 684-1,200 mg 1 cap PO DAILY HPI Comments Details: Carrol returns for follow-up regarding myocarditis. Previously admitted for combination of respiratory symptoms, chest pain and during ER evaluation detected to have elevated troponins and CK. Then diagnosed with acute myocarditis. Treated with NSAIDs and colchicine. In terms of symptoms, she is back to normal self. She feels fine and she is very active with no limitations. No other concerns. [facility] Medical History Myocarditis No pertinent past medical history Surgical History Hx of section Hx of LASIK Family History Mother Glaucoma Vertigo Father No problems noted. Daughter Age: 5 No problems noted. Other FH: breast cancer Social History Household Members: Family Housing: House Do you presently have visiting nurse or other home services: No Alcohol intake: never Patient Tobacco Use Status: Never used Tobacco e-Cigarette/Vaping Use: Never Used service: No Current occupational status: student Cognitive needs: No Hearing needs: No Vision needs: No Female Reproductive History Menstrual Age of Menarche: 13 Review of Systems Const Denies daytime sleepiness, Denies difficulty sleeping, Denies snoring, Denies stops breathing during sleep and Denies weakness Card Denies chest pain, Denies rapid heart rate, Denies irregular heart rhythm, Denies claudication, Denies leg edema, Denies lightheadedness, Denies palpitations, Denies dyspnea, Denies dyspnea on exertion, Denies orthopnea, Denies paroxysmal nocturnal dyspnea and Denies slow heart rate Resp Reports cough, Denies dyspnea, Denies dyspnea on exertion and Denies snoring GI Reports no additional complaints, Denies hematochezia, Denies change in stool character and Denies dyspepsia Musc Denies abnormal gait, Denies muscle weakness and Denies numbness Neuro Denies abnormal gait, Denies numbness and Denies weakness Endo Denies palpitations Physical Exam Vital Signs: Last Vital Signs Pulse 70 07/31/25 10:18 BP 112/64 07/31/25 10:18 BMI result Body Mass Index 24.3 Const General: comfortable and no acute distress Orientation/consciousness: patient oriented x3 HEENT Other: Unremarkable Head: Yes normal to inspection Neck Neck: Yes normal visual inspection Chest Chest palpation & inspection: normal inspection of the chest Resp Auscultation: clear to auscultation bilaterally Cardio Palpation: normal PMI Heart sounds: S1 normal heart sound present, S2 normal heart sound present, no gallops, no murmurs and no rubs GI Palpation (GI): Soft to palpation Back/Spine/Pelvis Other: unremarkable Skin General skin exam: no rashes or lesions noted Neuro General: patient oriented x3 Extrem General: Yes normal to inspection Psych Mental Status: mental status grossly normal Assessment & Plan Assessment & Plan (1) Myocarditis: Code(s): I51.4 - Myocarditis, unspecified Category: Medical Qualifiers: Chronicity: acute Myocarditis type: unspecified Qualified Code(s): I40.9 - Acute myocarditis, unspecified Plan In the echocardiogram from admission, LVEF 59%. Possible basal inferior/inferolateral hypokinesis. Trivial pericardial effusion. Otherwise unremarkable. In the repeat study, LVEF 55-60% without any reported wall motion abnormality. Again trivial pericardial effusion. Chest CTA was unremarkable. Troponin levels during the time of hospitalization include 189, 191 followed by 36. CK levels have at 185 and 216. CRP was borderline abnormal at 0.59. ESR was within range. Cardiac BNP was 33, within range. Cardiac MRI reported to have preserved LVEF and no clear evidence of cardiomyopathy, myocardial fibrosis and most likely no residual myocarditis. Holter monitor showed underlying sinus rhythm with an average rate of 74/Min. No significant ectopy, tachy or bradyarrhythmias. Overall, suspected myocarditis and she seems to have fully recovered. No specific management beyond this and she should be able to pursue regular physical activity. She will contact us with any concerns. Total time spent including review of data, counseling, documentation, coordination of care-31 minutes. Coding Level of Care Code Est Pt Level 4 (04380) Diagnoses Acute myocarditis, unspecified myocarditis type I40.9 Chronicity: acute Myocarditis type: unspecified
== END 2025-07-31 10:35 | disposition home or self-care (01) ==
LOC: HO.HCS 10:16
PROVIDERS: PCP Internal Medicine; Visit Provider Internal Medicine
DX: I40.9 Acute myocarditis, unspecified (principal)
CPT/HCPCS: 99214

== ENCOUNTER → 2025-07-31 10:15 | Outpatient (BNVA) | payer OTHER, SELFPAY | PROVIDERS: PCP Internal Medicine; Visit Provider Internal Medicine | DX: I40.9 Acute myocarditis, unspecified (principal) | CPT/HCPCS: 99212 ==

== ENCOUNTER 2025-10-22 06:36 | Outpatient (REF) | payer OTHER, SELFPAY ==
[2025-10-22 11:24] LABS: Cholesterol 200 mg/dL (<200); HDL Cholesterol 56 mg/dL (>40); Triglycerides 80 mg/dL (<150)
== END 2025-10-22 06:37 | disposition home or self-care (01) ==
LOC: HO.HMGCLDS 06:36
DX: E78.00 Pure hypercholesterolemia, unspecified (principal)
CPT/HCPCS: 36415; 80061

== ENCOUNTER 2025-10-25 10:09 | Outpatient (AMB) | payer OTHER, SELFPAY ==
[2025-10-25 10:16] VITALS: BP 90/62; PULSE 64; RESP 18; O2SAT 94; BMI 23.6
--- NOTE | 2025-10-25 10:16 | MHC.PC.OV ---
Vital Signs 10/25/25 10:16 Height 5 ft 1 in Weight 125 lb 2 oz BMI 23.6 BP 90/62 Blood Pressure Location Lt brachial Position Sitting Respiration 18 Pulse 64 Pulse Source Pulse Oximeter Temp Source Temporal Artery Scan Pulse Oximetry (%) 94 Oxygen Delivery Method Room Air Intake Visit Reasons: HLD/myocarditis with Sarahi Customer Advocate Required: No Accompanied by: Self / Same As Patient Allergies No Known Allergies Allergy (Verified 10/25/25 10:48) Medication List - Last Reconciled 10/25/25 by Sarahi Castillo PA-C ascorbate calcium (vitamin C) 500 mg PO DAILY biotin mcg PO magnesium glycinate 200 mg PO DAILY omega-3 fatty acids-fish oil 684-1,200 mg 1 cap PO DAILY Tobacco use date assessed: 10/25/25 Dental Screening Dental Screen Date: 10/25/25 Did you have a dental visit in the last 12 months?: Yes Did you have a dental problem in the last 6 months where you did not have access to dental care?: No Was dental information given to patient?: Patient has dentist HPI HLD/myocarditis with Sarahi HPI Details 30 year old female with past medical history of myocarditis and hypercholesterolemialast seen 07/2025 coming in for follow up. In review of the notes, patient was seen by cardiology 07/2025 patient has fully recovered from myocarditis follow up prn. Presenting with concerns of night sweats and unintentional weight loss. She reports experiencing profuse night sweats, which first occurred in May. The sweating is severe enough to drench her clothes, making her initially think she had urinated in bed. Over the past week, the night sweats have occurred every night, starting last Wednesday, which was before the onset of her current menstrual period. These episodes happen despite the house thermostat being set to a cool 65-67?F and are not associated with wearing synthetic fabrics like polyester. She reports an unintentional weight loss of 6 pounds, from 128 pounds in May to 122 pounds at present, without any changes to her diet. She has a history of stress-induced weight loss approximately two to three years ago following the of her stepfather. Past medical history is [facility]. [facility] Medical History Myocarditis No pertinent past medical history Surgical History Hx of section Hx of LASIK Family History Mother Glaucoma Vertigo Father No problems noted. Daughter Age: 5 No problems noted. Other FH: breast cancer Social History Household Members: Family Housing: House Do you presently have visiting nurse or other home services: No Alcohol intake: never Patient Tobacco Use Status: Never used Tobacco e-Cigarette/Vaping Use: Never Used service: No Current occupational status: student Cognitive needs: No Hearing needs: No Vision needs: No Female Reproductive History Menstrual Age of Menarche: 13 Questionnaire Thrive Questionnaire Date Thrive assessed: 10/25/25 I am a: Patient What is your living situation today?: I have a steady place to live Within the past 12 months, did the food you bought not last and you didn't have the money to get more?: Never true Within the past 12 months, did you worry whether your food would run out before you got money to buy more?: Never true Do you have trouble paying for medicines?: No Do you have trouble getting transportation to medical appointments?: No Do you have trouble paying your heating and electricity bill?: No Do you have trouble taking care of your child, family member or friend?: No Do you have trouble with day-to-day activities such as bathing, preparing meals, shopping, managing finances, etc.?: No Are you currently unemployed and looking for a job?: No Are you interested in more education?: No Please select the resources that you would like help with: None Currently or been in a relationship where the following occur: No concerns reported THRIVE Score: 0 ARGENIS-7 AMB Questionnaire ARGENIS-7 Date ARGENIS - 7 assessed: 07/26/25 Source: Developed by Drs. Juan Rodriguez, Janet Deleon, Erick Billings and colleagues, with an educational thor from [employer]. Review of Systems Const Denies body aches, Denies chills, Reports fatigue, Denies fever(s), Denies headache(s), Reports night sweats, Denies poor appetite and Reports weight loss Eyes Reports no additional complaints ENT Denies dizziness and Denies headache(s) Card Denies chest pain, Denies edema, Denies irregular heart rhythm, Denies lightheadedness and Denies dyspnea Resp Denies cough and Denies dyspnea GI Denies abdominal pain, Denies melena, Denies bloating, Denies hematochezia, Denies nausea and Denies vomiting Reports no additional complaints Musc Reports no additional complaints and Denies abnormal gait Skin/Breast Reports system reviewed and no additional complaints, except as documented Neuro Denies abnormal gait, Denies dizziness and Denies headache(s) Psych Reports no additional complaints Endo Reports fatigue Physical exam (Primary Care) Vital Signs: Last Vital Signs Pulse 64 10/25/25 10:16 Resp 18 10/25/25 10:16 BP 90/62 10/25/25 10:16 Pulse Ox 94 10/25/25 10:16 Oxygen Delivery Method Room Air 10/25/25 10:16 BMI result Body Mass Index 23.6 Tobacco/Smoking Status: Tobacco use Status Tobacco use date assessed 10/25/25 10/25/25 10:28 Patient Tobacco Use Status Never used Tobacco 10/25/25 10:28 e-Cigarette/Vaping Use Never Used 10/25/25 10:28 Thrive Assessment: Date of Thrive Assessment Date Thrive assessed 10/25/25 10/25/25 10:28 Currently or been in a relationship where the following occur: No concerns reported Const General: cooperative, healthy appearing, comfortable and no acute distress Orientation/consciousness: patient oriented x3 [facility] Head: Yes normocephalic Ears: hearing grossly normal bilaterally General nose exam: Normal external nose present Eyes General: appearance normal, both eyes and all related structures Conjunctivae: conjunctivae normal Neck Neck: Yes full ROM and Yes no lymphadenopathy Resp Effort & Inspection: normal respiratory effort Auscultation: clear to auscultation bilaterally, no crackles, no rales, no rhonchi and no wheezes Cardio Rate: regular rate Rhythm: regular rhythm Skin General skin exam: no rashes or lesions noted Neuro General: patient oriented x3 Gait exam (Neuro): Normal gait present Extrem General: Yes normal to inspection, Yes full ROM and No edema Psych Affect: normal affect Attitude: cooperative Insight: Good insight present (Psych) Judgement: Good judgement present (Psych) Coding Level of Care Code Est Pt Level 4 (75349) Diagnoses Acute myocarditis, unspecified myocarditis type I40.9 Chronicity: acute Myocarditis type: unspecified Pure hypercholesterolemia E78.00 Weight loss R63.4 Night sweats R61 Assessment & Plan Assessment & Plan (1) Myocarditis: Code(s): I51.4 - Myocarditis, unspecified Category: Medical Qualifiers: Chronicity: acute Myocarditis type: unspecified Qualified Code(s): I40.9 - Acute myocarditis, unspecified Plan: Cleared by cardiology to follow up prn. (2) Pure hypercholesterolemia: Code(s): E78.00 - Pure hypercholesterolemia, unspecified Category: Medical Plan: Avoid foods that are high in cholesterol such as red meat, fried foods, eggs and baked goods. Triglyceride goal of less than 150 and LDL goal of less than 130. LDL improved on last labs. (3) Weight loss: Code(s): R63.4 - Abnormal weight loss Category: Medical Plan: The patient presents with night sweats and unintentional weight loss, with a differential diagnosis including hormonal changes, thyroid dysfunction, and malignancy. A comprehensive workup will be initiated to rule out serious underlying causes before attributing symptoms to stress or perimenopause. The plan includes ordering blood work to evaluate thyroid function, a chest x-ray, and a mammogram. She is also advised to follow up with gynecology to investigate possible hormonal causes and for cervical cancer screening. (4) Night sweats: Code(s): R61 - Generalized hyperhidrosis Category: Medical Plan: See above Plan This note was constructed using voice recognition software. While every effort has been made to ensure accuracy and fisher pound net or trap, still areas may have been included sometimes these areas may affect the content or meeting of the given symptoms. Total time spent caring for the patient today was 20 minutes. This includes time spent before the visit reviewing the chart, time spent during the visit, and time spent after the visit and documentation. Patient was informed and verbally consented to the use of an ambient scribe for clinic note documentation during this visit. Orders: Orders MM tomosynthesis screening BI Today R61 - Generalized hyperhidrosis, R63.4 - Abnormal weight loss, Z12.31 - Encounter for screening mammogram for malignant neoplasm of breast, Z80.3 - Family history of malignant neoplasm of breast Comprehensive Met. Panel Today R61 - Generalized hyperhidrosis, Z00.00 - Encounter for general adult medical examination without abnormal findings XR chest 2V Today R61 - Generalized hyperhidrosis, R63.4 - Abnormal weight loss UA CC w/rflx Micro + Cult Today R35.89 - Other polyuria, R61 - Generalized hyperhidrosis Complete Blood Count Auto Diff Today R61 - Generalized hyperhidrosis, Z13.0 - Encounter for screening for diseases of the blood and blood-forming organs and certain disorders involving the immune mechanism TSH reflex Free T4 Today R61 - Generalized hyperhidrosis, Z13.29 - Encounter for screening for other suspected endocrine disorder IRON PROFILE Today R61 - Generalized hyperhidrosis
== END 2025-10-25 11:13 | disposition home or self-care (01) ==
LOC: HO.HMCH 10:10
DX: I40.9 Acute myocarditis, unspecified (principal); E78.00 Pure hypercholesterolemia, unspecified; R63.4 Abnormal weight loss; R61 Generalized hyperhidrosis

== ENCOUNTER → 2025-10-25 10:09 | Outpatient (BNVA) | payer OTHER, SELFPAY | DX: I40.9 Acute myocarditis, unspecified (principal); E78.00 Pure hypercholesterolemia, unspecified; R63.4 Abnormal weight loss; R61 Generalized hyperhidrosis | CPT/HCPCS: 99212 ==

== ENCOUNTER 2025-10-29 09:03 | Outpatient (REF) | payer OTHER, SELFPAY ==
--- NOTE | ~2025-10-29 | XR_ITS ---
EXAMINATION: XR CHEST CLINICAL INFORMATION: R61 - Generalized hyperhidrosis COMPARISON: January 28, 2025. TECHNIQUE: PA and lateral views FINDINGS: Hyperinflated lungs. No consolidation, pleural effusion or pneumothorax. Cardiomediastinal silhouette size is normal. Mild multilevel thoracic spondylosis. XR/XR chest 2V IMPRESSION: Hyperinflated lungs without acute airspace disease. Electronically signed by: Fran Khoury MD 10/29/2025 09:28 AM MYRIAM
[2025-10-29 10:31] LABS: Appearance Urine Clear; Glucose Urine UA Negative (Negative); PH 7.0 (5.0-9.0); Specific Gravity - Urine <= 1.005 (1.005-1.025)
[2025-10-29 10:47] LABS: MANUAL DIFF FLAG NO
[2025-10-29 11:22] LABS: Hematocrit 41.8 % (37.0-47.0); Hemoglobin 13.5 g/dl (12.0-16.0); Imm Gran Abs Auto 0.03 X10*3/uL (0.00-0.03); Imm Gran Pct Auto 0.8 % (0.0-0.4); Lymphocytes Absolute Auto 1.4 X10*3/uL (1.2-4.9); Mean Corpuscular HGB Conc 32.3 g/dl (31.0-35.0); Mean Corpuscular Hemoglobin 28.9 pg (27.0-33.0); Mean Corpuscular Volume 89.5 fL (80.0-98.0); NRBC Abs Auto 0.000 X10*3/uL (0.0-0.012); NRBC Pct Auto 0.0 /100WBC (0.0-0.2); Platelet Count 288 X10*3/uL (160-400); Red Blood Count 4.67 X10*6/uL (4.20-5.50); White Blood Count 3.9 X10*3/uL (4.8-10.8)
[2025-10-29 11:31] LABS: Alanine Aminotransferase 23 U/L (0-31); Albumin Level 4.7 g/dL (3.5-5.0); Alkaline Phosphatase 44 U/L (39-117); Anion Gap 10 (12-20); Aspartate Amino Transferase 24 U/L (5-31); Blood Urea Nitrogen 12 mg/dL (9-16); Calcium 9.3 mg/dL (8.4-10.2); Carbon Dioxide 29 mmol/L (22-29); Chloride 104 mmol/L (96-108); Estimated Glomerular Filt Rate > 60; Iron 106 mcg/dL (30-160); Percent Iron Saturation 40 % (15-50); Potassium 4.1 mmol/L (3.3-5.1); Sodium 139 mmol/L (135-145); Total Iron Binding Capacity 263 mcg/dL (228-428); Total Protein 7.3 g/dL (6.5-8.0); Unsaturated Iron Binding 157 ug/dL
== END 2025-10-29 09:04 | disposition home or self-care (01) ==
LOC: HO.HMGCX 09:03
DX: Z00.00 Encounter for general adult medical examination without abnormal findings (principal); Z13.0 Encounter for screening for diseases of the blood and blood-forming organs and certain disorders involving the immune mechanism; Z13.29 Encounter for screening for other suspected endocrine disorder; R61 Generalized hyperhidrosis; R35.89 Other polyuria; R63.4 Abnormal weight loss
CPT/HCPCS: 36415; 71046; 80053; 81003; 83540; 84443; 85025

== ENCOUNTER → 2025-10-29 09:07 | Outpatient (BNV) | payer OTHER, SELFPAY | PROVIDERS: Visit Provider Radiology Diagnostic Radiology | DX: R61 Generalized hyperhidrosis (principal) | CPT/HCPCS: 71046 ==

== ENCOUNTER 2025-11-14 21:13 | Emergency (ER) | payer OTHER, SELFPAY ==
--- NOTE | 2025-11-14 | ECG_ITS ---
Test Reason : CP Blood Pressure : */* mmHG Vent. Rate : 114 BPM Atrial Rate : 114 BPM P-R Int : 112 ms QRS Dur : 88 ms QT Int : 316 ms P-R-T Axes : 67 69 44 degrees QTcB Int : 435 ms Sinus tachycardia Otherwise normal ECG When compared with ECG of 30-Jan-2025 08:44, T wave amplitude has decreased in Anterior leads Nonspecific T wave abnormality no longer evident in Lateral leads Referred By: Generic ED Physician Electronically Signed By: HONORIO ZARAGOZA MD
--- NOTE | ~2025-11-14 | XR_ITS ---
CLINICAL HISTORY: cp 2 view chest x-ray Comparison: Chest x-ray on 10/29/2025 Findings: The lungs are clear. Normal size heart. No acute fracture. IMPRESSION: 1. No acute findings. This document has been electronically signed by: Pooja Jerez MD on 11/14/2025 21:54:10
[2025-11-14 21:16] VITALS: BP 132/81; PULSE 123; RESP 15; TEMP 36.8; O2SAT 99; BMI 21.6
[2025-11-14 21:37] LABS: MANUAL DIFF FLAG NO
[2025-11-14 21:38] LABS: Hematocrit 40.3 % (37.0-47.0); Hemoglobin 13.4 g/dl (12.0-16.0); Imm Gran Abs Auto 0.02 X10*3/uL (0.00-0.03); Imm Gran Pct Auto 0.3 % (0.0-0.4); Lymphocytes Absolute Auto 0.3 X10*3/uL (1.2-4.9); Mean Corpuscular HGB Conc 33.3 g/dl (31.0-35.0); Mean Corpuscular Hemoglobin 28.9 pg (27.0-33.0); Mean Corpuscular Volume 86.9 fL (80.0-98.0); NRBC Abs Auto 0.000 X10*3/uL (0.0-0.012); NRBC Pct Auto 0.0 /100WBC (0.0-0.2); Platelet Count 209 X10*3/uL (160-400); Red Blood Count 4.64 X10*6/uL (4.20-5.50); White Blood Count 6.9 X10*3/uL (4.8-10.8)
[2025-11-14 22:00] LABS: Alanine Aminotransferase 27 U/L (0-31); Albumin Level 4.9 g/dL (3.5-5.0); Alkaline Phosphatase 51 U/L (39-117); Anion Gap 12 (12-20); Aspartate Amino Transferase 25 U/L (5-31); Blood Urea Nitrogen 8 mg/dL (9-16); Calcium 9.9 mg/dL (8.4-10.2); Carbon Dioxide 28 mmol/L (22-29); Chloride 106 mmol/L (96-108); Creatinine Clr Calc Pharmacy 109.0; Estimated Glomerular Filt Rate > 60; Potassium 4.0 mmol/L (3.3-5.1); Sodium 142 mmol/L (135-145); Total Protein 7.6 g/dL (6.5-8.0)
[2025-11-14 22:03] LABS: Troponin-I High Sensitivity < 2.7 ng/L (<3.5-17.0)
[2025-11-14 22:16] LABS: Resp Syncy Virus RNA Qual PCR NEGATIVE (Negative); SARS COV2 PCR INHOUSE NEGATIVE (Negative)
[2025-11-14 22:19] VITALS: PULSE 114
[2025-11-14] MEDS: Lactated Ringers 1,000 ML 999 ML IV (22:30)
--- NOTE | 2025-11-14 22:40 | PC.NURSE ---
Pt a&ox4, no signs of distress Pt on bedside monitor Pt reports 9/10 bodyaches Pt medicated per mar Pts family at bedside Plan of care ongoing.
--- NOTE | 2025-11-14 22:57 | ED_ITS ---
HPI - General Adult General Chief complaint: Upper Respiratory Symptoms Stated complaint: tachycardia? Time Seen by Provider: 11/14/25 21:56 Source: patient, RN notes reviewed and old records reviewed Mode of arrival: ambulatory Limitations: no limitations History of Present Illness ED Provider: Rodri TRUJILLO narrative: 30-year-old female with a past medical history significant for myocarditis presents for evaluation of congestion, cough, congestion, palpitations. Patient reports that her symptoms started 2 days ago. She thought she had a viral illness with congestion, cough and facial pain. She reports that today her symptoms worsened. She felt that her heart was racing and had some chest tightness. She continues to have cough. she did not check her temperature but had subjective fevers and chills yesterday no abdominal pain, nausea vomiting, diarrhea. Related Data Home Medications ?Medication ?Instructions ?Recorded ?Confirmed magnesium glycinate 100 mg (as 200 mg PO DAILY 5 10/25/25 glycinate) tablet omega-3 fatty acids-fish oil 684 1 cap PO DAILY 10/25/25 mg-1,200 mg capsule,delayed release ascorbate calcium (vitamin C) 500 500 mg PO DAILY 03/1610/25/25 mg tablet biotin 10,000 mcg capsule mcg PO 07/26/25 10/25/25 Allergies Allergy/AdvReac Type Severity Reaction Status Date / Time No Known Allergies Allergy Verified 11/14/25 21:19 Review of Systems 2 Constitutional: Constitutional: Reports body ache(s), Reports chills, Reports fever(s), Reports headache(s), Denies increased appetite, Reports lethargy and Reports malaise Eyes: Eyes: Denies blurry vision ENT: Reports headache(s), Reports nasal congestion, Reports nasal discharge, Reports sinus pressure and Denies sore throat Cardiovascular: Cardiovascular: Reports dyspnea and Reports dyspnea on exertion Respiratory: Respiratory: Reports chest congestion, Reports cough, Denies pain on inspiration, Reports pain with cough, Reports dyspnea and Reports dyspnea on exertion Gastrointestinal: Gastrointestinal: Denies abdominal pain, Denies nausea and Denies vomiting Musculoskeletal: Musculoskeletal: Denies back pain Integumentary/Breasts: Skin/Breast: Denies rash Neurologic: Reports headache(s) Psychiatric: Psychiatric: Denies anxiety PMFSH Past Medical History Medical History Myocarditis No pertinent past medical history Surgical History Hx of section Hx of LASIK Family History Family History Mother Glaucoma Vertigo Father No problems noted. Daughter Age: 5 No problems noted. Other FH: breast cancer Social History Social History Household Members: Family Housing: House Do you presently have visiting nurse or other home services: No Alcohol intake: never Patient Tobacco Use Status: Never used Tobacco Smoked in Last 30 Days: No e-Cigarette/Vaping Use: Never Used Use of substances other than those prescribed or required for medical reasons: No Advance Directives: No Advance Directives Information Provided: No service: No Current occupational status: student Cognitive needs: No Hearing needs: No Vision needs: No Physical Exam ED Vital Signs: Vital Signs - 24 hr 11/14/25 21:16 Temperature 98.3 F Pulse Rate 123 H Respiratory Rate 15 Blood Pressure 132/81 Pulse Oximetry 99 Oxygen Delivery Method Room Air BMI result Body Mass Index 21.6 Const General: healthy appearing, comfortable, no acute distress, alert and awake Nutritional Appearance: well nourished Orientation/consciousness: patient oriented x3 HENMT Head: Yes normocephalic and Yes atraumatic Eyes Eyelids: Yes eyelids normal Conjunctivae: conjunctivae normal Sclerae: sclerae normal Corneas: corneas normal Pupils: Equal, round and reactive pupils present EOM: EOMs intact bilaterally Neck Neck: Yes full ROM Resp Effort & Inspection: normal respiratory effort, able to speak in complete sentences, no audible wheezes and not labored Auscultation: clear to auscultation bilaterally Cardio Rate: regular rate, not bradycardic and tachycardic Rhythm: regular rhythm and regular rhythm GI Inspection: No distended Palpation (GI): Soft to palpation, not firm, nontender, no guarding and not rigid Skin General skin exam: elasticity normal Neuro General: patient oriented x3 Cranial nerves: Yes Equal, round and reactive pupils present and Yes Bilaterally intact EOM present Cognition (Neuro): normal cognition Extrem Other: Moving all extremities well without any obvious deformities Course Reevaluation(s) Reevaluation #1: the patient has tachycardia has improved somewhat after IV fluids and Toradol. She is down to about 116-118 and sinus but does spike up to 130 with coughing. At this time I do not suspect PE as the patient has no risk factors in the has an alternative diagnosis of the flu. I offered to treat the patient with a additional IV fluids to help lower her heart rate and she declines, she would like to be discharged. She was given strict return precautions Time: 23:11 Medications Administered Generic Name Dose Route Start Last Admin Trade Name Freq PRN Reason Stop Dose Admin Lactated Ringer's 1,000 mls @ 999 mls/hr 11/14/25 22:30 11/14/25 22:30 Lr IV 11/14/25 23:30 999 mls/hr .Q1H1M MERE Administration Discontinued Medications Generic Name Dose Route Start Last Admin Trade Name Freq PRN Reason Stop Dose Admin Ketorolac Tromethamine 30 mg 11/14/25 22:24 11/14/25 22:33 Ketorolac Tromethamine 30 Mg/Ml Vial IVPUSH 11/14/25 22:25 30 mg ONCE ONE Administration Medical Decision Making Medical Decision Making [facility] Narrative: 30-year-old female with a past medical history significant for myocarditis presents for evaluation of flu-like symptoms but also complains of chest congestion, tightness and palpitations. She is tachycardic in triage, plan for labs, EKG, chest x-ray and viral swabs. I think the patient's presentation is most consistent with influenza given the high amount of positive result to be has been seeing combined with the patient's clinical picture. Given her history we will still work her up for cardiac disease though this is not colitis consistent with myocarditis. We will treat her symptoms with IV fluids, Toradol. the patient has had a TSH within the last 3 weeks that was within normal limits, I do not see any indication to repeat this today. Differential Diagnosis Differential Diagnoses: The differential diagnosis associated with the presentation includes Influenza COVID-19 Viral illness Bronchitis Pneumonia Myocarditis Admission/Observation Consideration of admission/observation: Escalation of care including admission/observation considered Lab Data [facility] Lab Attestation statement: I reviewed the patient's lab results. No leukocytosis or anemia. Normal platelet count. No electrolyte abnormalities warranting dimension. Troponin undetectable 11/14/25 21:25 11/14/25 21:25 Labs: Lab Results 11/14/25 Range/Units 21:25 WBC 6.9 (4.8-10.8) X10*3/uL RBC 4.64 (4.20-5.50) X10*6/uL Hgb 13.4 (12.0-16.0) g/dl Hct 40.3 (37.0-47.0) % MCV 86.9 (80.0-98.0) fL MCH 28.9 (27.0-33.0) pg MCHC 33.3 (31.0-35.0) g/dl RDW 13.0 (11.0-16.0) % Plt Count 209 D (160-400) X10*3/uL MPV 9.5 (9.4-12.3) fL Immature Gran % (Auto) 0.3 (0.0-0.4) % Neut % (Auto) 86.9 H (45-73) % Lymph % (Auto) 4.9 L (20-40) % Snyder % (Auto) 5.4 (2-11) % Eos % (Auto) 2.2 (0-4) % Baso % (Auto) 0.3 (0-2) % Lymph # (Auto) 0.3 L (1.2-4.9) X10*3/uL Snyder # (Auto) 0.4 (0.1-1.2) X10*3/uL Eos # (Auto) 0.2 (0.0-0.4) X10*3/uL Baso # (Auto) 0.0 (0.0-0.2) X10*3/uL Abs Immat Gran (auto) 0.02 (0.00-0.03) X10*3/uL Absolute Neuts (auto) 6.0 (2.0-8.3) x10*3/uL Absolute Nucleated RBC 0.000 (0.0-0.012) X10*3/uL Nucleated RBC % (auto) 0.0 (0.0-0.2) /100WBC Sodium 142 (135-145) mmol/L Potassium 4.0 (3.3-5.1) mmol/L Chloride 106 (96-108) mmol/L Carbon Dioxide 28 (22-29) mmol/L Anion Gap 12 (12-20) BUN 8 L (9-16) mg/dL Creatinine 0.64 (0.5-1.4) mg/dL Estim Creat Clear Calc 109.0 Estimated GFR > 60 Random Glucose 107 (60-115) mg/dL Calcium 9.9 D (8.4-10.2) mg/dL Total Bilirubin 0.3 (0.0-1.0) mg/dL AST 25 (5-31) U/L ALT 27 (0-31) U/L Alkaline Phosphatase 51 (39-117) U/L Troponin I High Sens < 2.7 D (<3.5-17.0) ng/L Total Protein 7.6 (6.5-8.0) g/dL Albumin 4.9 (3.5-5.0) g/dL Influenza Type A (PCR) POSITIVE A (Negative) Influenza Type B (PCR) NEGATIVE (Negative) RSV RNA Qual (PCR) NEGATIVE (Negative) SARS-CoV-2 RNA (RT-PCR) NEGATIVE (Negative) Independent Interpretation I performed an independent interpretation of an: EKG ( sinus tachycardia rate of 114 beats minute.) and Plain X-Ray Interpretation: agree with Radiology interpretation Radiology Impression Discussion of test interpretation with radiology: I have reviewed the radiologist's reading. Radiologist Impression: Findings: The lungs are clear. Normal size heart. No acute fracture. IMPRESSION: 1. No acute findings. This document has been electronically signed by: Pooja Jerez MD on 11/14/2025 21:54:10 Discharge Plan Discharge Clinical Impression: Influenza A Patient Disposition: Home, Self-Care Instructions: Influenza (ED) Additional Instructions: Your workup in the ER today was reassuring. You have no findings to suggest you have myocarditis currently. However myocarditis can be caused by a viral illness and you did test positive for influenza pain You do not have pneumonia based on your chest x-ray. Your blood work was reassuring. If you develop worsening chest pain or palpitations I recommend returning to the emergency department. In the meantime hydrate well, use ibuprofen/ Tylenol for fevers and pain I recommend avoiding medications that include pseudoephedrine, phenylephrine, as these medications will likely increase your heart rate. Prescriptions: No Action omega-3 fatty acids-fish oil 684-1,200 mg Capsule,Delayed Release(Dr/Ec) 1 cap PO DAILY magnesium glycinate 100 mg Tablet 200 mg PO DAILY Rx Instructions: CANNOT TOLERATE MAGNESIUM OXIDE; DIARRHEA biotin 10,000 mcg capsule PO ascorbate calcium (vitamin C) 500 mg tablet 500 mg PO DAILY Print Language: Czech
[2025-11-14 23:14] VITALS: PULSE 118
[2025-11-14 23:17] VITALS: BP 101/56; PULSE 110; RESP 18; O2SAT 98
[2025-11-14 23:22] VITALS: BP 101/56; PULSE 110; RESP 18; TEMP -17.7; TEMP 0; O2SAT 98
== END 2025-11-14 23:23 | disposition home or self-care (01) ==
PROVIDERS: Emergency Provider Emergency Medicine
DX: J10.1 Influenza due to other identified influenza virus with other respiratory manifestations (principal); R05.9 Cough, unspecified; Z03.818 Encounter for observation for suspected exposure to other biological agents ruled out
CPT/HCPCS: 71046; 80053; 84484; 85025; 87637; 93005; 96374; 99284; 99285; J1885; J7120

== ENCOUNTER → 2025-11-14 21:20 | Outpatient (BNV) | payer OTHER, SELFPAY | PROVIDERS: Emergency Provider Emergency Medicine; Visit Provider Internal Medicine Cardiovascular Disease | DX: R00.0 Tachycardia, unspecified (principal) | CPT/HCPCS: 93010 ==

== ENCOUNTER → 2025-11-14 21:32 | Outpatient (BNV) | payer OTHER, SELFPAY | PROVIDERS: Visit Provider Radiology Diagnostic Radiology | DX: R07.9 Chest pain, unspecified (principal) | CPT/HCPCS: 71046 ==

== ENCOUNTER 2025-11-20 09:18 | Outpatient (AMB) | payer OTHER, SELFPAY ==
--- NOTE | 2025-11-20 09:27 | A.OFFPC_ITS ---
Vital Signs 11/20/25 09:28 Height 5 ft 4 in Weight 126 lb BMI 21.6 BP 100/62 Blood Pressure Location Lt brachial Position Sitting Respiration 16 Pulse 63 Pulse Source Pulse Oximeter Temp 97.9 F Temp Source Temporal Artery Scan Pulse Oximetry (%) 95 Oxygen Delivery Method Room Air Intake [place] [facility] [place] Intake Note: Congestion, cough and fast heart beat Learning Operations Specialist Required: No Accompanied by: Spouse Allergies No Known Allergies Allergy (Verified 11/20/25 09:42) Medication List - Last Reconciled 11/20/25 by Sarahi Castillo PA-C acetaminophen (Tylenol Extra Strength) 500 mg PO Q6H PRN Tobacco use date assessed: 10/25/25 Dental Screening Dental Screen Date: 10/25/25 [place] [facility] [place] HPI Details 30 year old female with past medical his tory of myocarditis and hypercholesterolemialast seen 10/2025 coming in for hospital follow up. In review of the notes, patient was seen in [facility] ED for congestion, diagnosed with flu A. She was tachycardic while in the ED which resolved with IV fluids. She does have history of myocarditis and was given strict return precautions. Presenting for follow-up of influenza. Her symptoms began six days ago, prompting an emergency room visit on the , where she was diagnosed with influenza. Currently, she continues to experience symptoms including a persistent, non-productive dry cough and dizziness. The patient also reports significant fatigue and feeling winded with minimal activity, such as climbing stairs. Her fevers have resolved, and she feels her overall condition has improved with the exception of the cough. She has been taking [id number]-[id number] guaifenesin. She reports having episodes of diaphoresis, which she believes may be hormonally related as her menstrual period started today. PFSH Medical History Myocarditis No pertinent past medical history Surgical History Hx of section Hx of LASIK Family History Mother Glaucoma Vertigo Father No problems noted. Daughter Age: 5 No problems noted. Other FH: breast cancer Social History Household Members: Family Housing: House Do you presently have visiting nurse or other home services: No Alcohol intake: never Patient Tobacco Use Status: Never used Tobacco e-Cigarette/Vaping Use: Never Used service: No Current occupational status: student Cognitive needs: No Hearing needs: No Vision needs: No Female Reproductive History Menstrual Age of Menarche: 13 Questionnaire Thrive Questionnaire Date Thrive assessed: 03/14/25 I am a: Patient What is your living situation today?: I have a steady place to live Within the past 12 months, did the food you bought not last and you didn't have the money to get more?: Never true Within the past 12 months, did you worry whether your food would run out before you got money to buy more?: Never true Do you have trouble paying for medicines?: No Do you have trouble getting transportation to medical appointments?: No Do you have trouble paying your heating and electricity bill?: No Do you have trouble taking care of your child, family member or friend?: No Do you have trouble with day-to-day activities such as bathing, preparing meals, shopping, managing finances, etc.?: No Are you currently unemployed and looking for a job?: No Are you interested in more education?: No Currently or been in a relationship where the following occur: No concerns reported THRIVE Score: 0 ARGENIS-7 AMB Questionnaire ARGENIS-7 Date ARGENIS - 7 assessed: 07/26/25 Source: Developed by Drs. Juan Rodriguez, Janet Deleon, Erick Billings and colleagues, with an educational thor from [employer]. Review of Systems Const Reports body aches, Denies chills, Denies fever(s), Reports headache(s), Reports night sweats and Reports poor appetite Eyes Reports no additional complaints ENT Denies dysphagia, Denies dizziness, Reports headache(s), Reports nasal congestion, Reports nasal discharge, Denies odynophagia and Denies sore throat Card Denies chest pain, Denies edema, Denies irregular heart rhythm, Denies lightheadedness, Denies dyspnea and Reports dyspnea on exertion Resp Reports cough, Denies hemoptysis, Denies excessive phlegm production, Denies dyspnea and Reports dyspnea on exertion GI Denies dysphagia, Denies diarrhea, Denies nausea, Denies odynophagia and Denies vomiting Reports no additional complaints Musc Reports no additional complaints and Denies abnormal gait Skin/Breast Reports system reviewed and no additional complaints, except as documented Neuro Denies abnormal gait, Denies dizziness and Reports headache(s) Psych Reports no additional complaints Physical exam (Primary Care) Vital Signs: Last Vital Signs Temp 97.9 F 11/20/25 09:28 Pulse 63 11/20/25 09:28 Resp 16 11/20/25 09:28 BP 100/62 11/20/25 09:28 Pulse Ox 95 11/20/25 09:28 Oxygen Delivery Method Room Air 11/20/25 09:28 BMI result Body Mass Index 21.6 Tobacco/Smoking Status: Tobacco use Status Tobacco use date assessed 10/25/25 11/20/25 09:29 Patient Tobacco Use Status Never used Tobacco 11/20/25 09:29 e-Cigarette/Vaping Use Never Used 11/20/25 09:29 Thrive Assessment: Date of Thrive Assessment Date Thrive assessed 03/14/25 11/20/25 09:29 Currently or been in a relationship where the following occur: No concerns reported Const General: cooperative, healthy appearing, comfortable and no acute distress Orientation/consciousness: patient oriented x3 HENMT Head: Yes normocephalic Ears: hearing grossly normal bilaterally General nose exam: Normal external nose present Eyes General: appearance normal, both eyes and all related structures Conjunctivae: conjunctivae normal Neck Neck: Yes full ROM and Yes no lymphadenopathy Resp Effort & Inspection: normal respiratory effort Auscultation: clear to auscultation bilaterally, no crackles, no rales, no rhonchi and no wheezes Cardio Rate: regular rate Rhythm: regular rhythm Skin General skin exam: no rashes or lesions noted Neuro General: patient oriented x3 Gait exam (Neuro): Normal gait present Extrem General: Yes normal to inspection, Yes full ROM and No edema Psych Affect: normal affect Attitude: cooperative Insight: Good insight present (Psych) Judgement: Good judgement present (Psych) Coding Level of Care Code Est Pt Level 3 (94440) Diagnoses Influenza A J10.1 Acute myocarditis, unspecified myocarditis type I40.9 Chronicity: acute Myocarditis type: unspecified Night sweats R61 Assessment & Plan Assessment & Plan (1) Influenza A: Code(s): J10.1 - Influenza due to other identified influenza virus with other respiratory manifestations Category: Medical Plan: The patient is on day six of her influenza illness and her symptoms are lingering, which is typical as the flu can take 7-10 days to resolve. She has a persistent dry cough for which benzonatate will be prescribed to be used up to twice daily, particularly at night to help with sleep. She may continue using guaifenesin if the cough becomes productive. The plan includes rest, aggressive hydration with water and electrolytes, and taking deep breaths every 15 minutes to prevent pneumonia. The patient was instructed to monitor for signs of secondary pneumonia, such as new fevers, a cough productive of sputum, or worsening fatigue after initial improvement, and to call if these occur for consideration of a chest x-ray. (2) Myocarditis: Code(s): I51.4 - Myocarditis, unspecified Category: Medical Qualifiers: Chronicity: acute Myocarditis type: unspecified Qualified Code(s): I40.9 - Acute myocarditis, unspecified Plan: For history of myocarditis patient was given strict return criteria and she will continue to monitor her heart rate and symptoms at home. The patient's exertional tachycardia is a concern given her history of myocarditis. Today's physical exam is reassuring, with a normal heart rate even with coughing, and clear lungs. Dehydration is a likely contributor to her tachycardia, so maintaining adequate fluid and electrolyte intake is crucial. She has been instructed to go directly to the emergency room for evaluation if she experiences worsening heart racing or chest pain, where an EKG and blood tests can be performed to rule out a recurrence of myocarditis. (3) Night sweats: Code(s): R61 - Generalized hyperhidrosis Category: Medical Plan: For the night sweats the workup thus far has been negative and she is awaiting additional imaging to be completed. She believes it may be related to hormonal changes as she had 1 episode of night sweats 2 days prior to her menses. She will monitor the frequency of the sweating episodes and continue with workup at this time. Plan This note was constructed using voice recognition software. While every effort has been made to ensure accuracy and sales operations consultant, still areas may have been included sometimes these areas may affect the content or meeting of the given symptoms. Total time spent caring for the patient today was 20 minutes. This includes time spent before the visit reviewing the chart, time spent during the visit, and time spent after the visit and documentation. Patient was informed and verbally consented to the use of an ambient scribe for clinic note documentation during this visit. Medications: New benzonatate 100 mg PO BID PRN 14 caps 0RF cough
[2025-11-20 09:28] VITALS: BP 100/62; PULSE 63; RESP 16; TEMP 36.6; O2SAT 95; BMI 21.6
== END 2025-11-20 10:03 | disposition home or self-care (01) ==
LOC: HO.HMCH 09:20
DX: J10.1 Influenza due to other identified influenza virus with other respiratory manifestations (principal); I40.9 Acute myocarditis, unspecified; R61 Generalized hyperhidrosis

== ENCOUNTER → 2025-11-20 09:18 | Outpatient (BNVA) | payer OTHER, SELFPAY | DX: J10.1 Influenza due to other identified influenza virus with other respiratory manifestations (principal); I40.9 Acute myocarditis, unspecified; R61 Generalized hyperhidrosis | CPT/HCPCS: 99212 ==